=== PATIENT | male | born 1970 | race Caucasian/White ===

== ENCOUNTER 2017-02-26 11:48 | Inpatient (IN) | payer OTHER ==
[2017-02-26 16:19] VITALS: BMI 25.4
--- NOTE | 2017-02-26 16:41 | HP ---
COWS - Scale Resting Pulse: 1= [place] 81-100 Sweatin=Flushed/Facial Moisture Restless Observation: 3= Extraneous Movement Pupil Size: 2= Moderately Dilated Bone or Joint Aches: 2= Severe Diffuse Aches Runny Nose/ Eye Tearin= Runny Nose/Eyes GI Upset > 30mins: 3= Vomiting/Diarrhea Tremor Observation: 2= Slight Tremor Visible Yawning Observation: 2= >3x During Session Anxiety or Irritability: 2=Irritable/Anxious Goose Flesh Skin: 0=Smooth Skin COWS Score: 21 Admission ROS BHS - HPI Chief Complaint: I NEED HELP TO STOP USING PERCOCET Allergies/Adverse Reactions: Allergies Allergy/AdvReac Type Severity Reaction Status Date / Time No Known Allergies Allergy Verified 02/26/17 16:19 History of Present Illness: THIS 46 YEARS OLD MALE WITH PERCOCET DEPENDENCE,SEEKING HELP FOR DETOX, LAST DETOX [facility] 11/22 EXTENSIVE HISTORY OF NECROTIZING FASCIITIS,S/P MULTIPLE SURGERY AND KIN GRAFT AT [facility] LONGEST PERIOD OF SOBRIETY 15 YEARS Exam Limitations: No Limitations - Ebola screening Have you traveled outside of the country in the last 21 days: No Have you had contact with anyone from an Ebola affected area: No Have you been sick,other than usual withdrawal symptoms: No Do you have a fever: No - Review of Systems Constitutional: Chills, Diaphoresis, Malaise, Night Sweats, Changes in sleep, Weakness, Unintentional Wgt. Loss EENT: reports: Tearing, Nose Congestion Respiratory: reports: No Symptoms reported Cardiac: reports: Palpitations GI: reports: Diarrhea, Nausea, Vomiting, Abdominal cramping : reports: No Symptoms Reported Musculoskeletal: reports: Back Pain, Joint Pain, Muscle Pain, Joint Stiffness Integumentary: reports: Dryness (S/P SKIN GRAFT OF LEFT CHEST AND ABDOMEN MULTIPLE SURGERY) Neuro: reports: Headache, Tremors Endocrine: reports: No Symptoms Reported Hematology: reports: No Symptoms Reported Psychiatric: reports: No Sypmtoms Reported, Judgement Intact, Mood/Affect Appropiate, Depressed Patient History - Patient Medical History Hx Anemia: No Hx Asthma: No Hx Chronic Obstructive Pulmonary Disease (COPD): No Hx Cancer: No Hx Cardiac Disorders: No Hx Congestive Heart Failure: No Hx Hypertension: No Hx Hypercholesterolemia: No HX Cerebrovascular Accident: No Hx Seizures: No Hx Dementia: No Hx Diabetes: No Hx Gastrointestinal Disorders: No Hx Liver Disease: No Hx Genitourinary Disorders: No Hx Sexually Transmitted Disorders: No Hx Renal Disease (ESRD): No Hx Thyroid Disease: No Hx Human Immunodeficiency Virus (HIV): No (LAST 11/22 ) Hx Hepatitis C: No Hx Depression: Yes (NO MED) Hx Suicide Attempt: No Hx Bipolar Disorder: No Hx Schizophrenia: No Other Medical History: NO SUICIDAL,NO HOMICIDAL,S/P MULTIPLE SURGRY AND SKIN GRAFT FOR NECROTIZING - Patient Surgical History Past Surgical History: Yes Other Surgical History: S/P MULTIPLE SURGERY OF NECROTIZING FASCIITIS OF LEFT CHEST AND ABDOMEN ,SK - PPD History Previous Implant?: Yes Documented Results: Negative w/o proof Implanted On Prior R Admission?: No PPD to be Administered?: Yes - Smoking Cessation Smoking history: Former smoker Have you smoked in the past 12 months: Yes Aproximately how many cigarettes per day: 10 Hx Chewing Tobacco Use: No Initiated information on smoking cessation: Yes 'Breaking Loose' booklet given: 02/26/17 - Substance & Tx. History Hx Alcohol Use: No Hx Substance Use: Yes Substance Use Type: Opiates Hx Substance Use Treatment: Yes ([facility] [place] 11[place]22) Family Disease History - Family Disease History Family History: Denies Admission Physical Exam BHS - Vital Signs Vital Signs: Vital Signs - 24 hr 02/26/17 16:17 Temperature 97.8 F Pulse Rate 99 H Respiratory 18 Rate Blood Pressure 112/70 - Physical General Appearance: Yes: Moderate Distress, Tremorous, Irritable, Sweating, Anxious HEENTM: Yes: Normocephalic, [place], Pharynx Normal Respiratory: Yes: Lungs Clear, Normal Breath Sounds, No Respiratory Distress Neck: Yes: Within Normal Limits, Supple, Trachea in good position Breast: Yes: Within Normal Limits, Surgical Scar (S/P MULTIPLE SURGERY AND SKIN GRAFT LEFT CHEST AND ABDOMEN) Cardiology: Yes: Within Normal Limits, Regular Rhythm, Regular Rate, S1, S2 Abdominal: Yes: Within Normal Limits, Normal Bowel Sounds, Non Tender, Flat, Soft Genitourinary: Yes: Within Normal Limits Back: Yes: Muscle Spasm Musculoskeletal: Yes: Back pain, Joint Stiffness, Muscle Pain Extremities: Yes: Within Normal Limits, Normal Capillary Refill, Normal Inspection, Normal Range of Motion (WOUND BOTH THIGH [place] DONOR SITE), Tremors Neurological: Yes: gear keeper II-XII NML intact, Fully Oriented, Alert, Motor Strength 5/5 Integumentary: Yes: Dry, Other (S/P SKIN GRAFT LEFT CHEST AND ABDOMEN HEALING AT DONOR SITES BOTH THIGHES) Lymphatic: Yes: Within Normal Limits Cleared for Admission [facility] - Detox or Rehab [facility] Level of Care: Medically Managed Detox Regimen/Protocol: Methadone [facility] Breath Alcohol Content Breath Alcohol Content: 0 Urine Drug Screen - Results Drug Screen Negative: No Urine Drug Screen Results: OXY-Oxycodone
[2017-02-26] MEDS ORDERED: MAGNESIUM HYDROX 2400MG/30ML ORAL SUSPENSION 30 ML CUP PO PRN (17:08)
[2017-02-26] MEDS ORDERED: LOPERAMIDE HCL 2 MG CAPSULE PO PRN (17:08)
[2017-02-26] MEDS ORDERED: guaiFENesin/D-METHORPHAN HB 10 ML UNIT-DOSE CUPS PO PRN (17:08)
[2017-02-26] MEDS ORDERED: MENTHOL/PHENOL 1 EACH UD MM PRN (17:08)
[2017-02-26] MEDS ORDERED: MAG HYDROX/AL HYDROX/SIMETH 30 ML UNIT-DOSE CUP PO PRN (17:08)
[2017-02-26] MEDS ORDERED: MAGNESIUM CITRATE 300 ML BOTTLE PO PRN (17:08)
[2017-02-26] MEDS ORDERED: P-EPHED 60MG/TRIPROLIDI 2.5MG TABLET PO PRN (17:08)
[2017-02-26] MEDS ORDERED: METHADONE HCL 10 MG TABLET (FOR DETOX USE ONLY) PO ONE ×2 (17:45→23:00)
[2017-02-26] MEDS ORDERED: METHADONE HCL 10 MG TABLET (FOR DETOX USE ONLY) ONE (19:47)
[2017-02-26] MEDS: diazePAM 5 MG TABLET PO PRN (19:55)
[2017-02-26] MEDS: THIAMINE HCL 100 MG TABLET (FP) PO SCH (22:05)
[2017-02-26] MEDS: MAGNESIUM OXIDE 400 MG TABLET (FP) PO SCH (22:05)
[2017-02-26] MEDS: diphenhydrAMINE HCL 50 MG CAPSULE PO PRN (22:05)
[2017-02-27] MEDS: IBUPROFEN 400 MG TABLET (FP) PO PRN ×2 (01:00→22:27)
[2017-02-27] MEDS: diazePAM 5 MG TABLET PO PRN ×5 (01:00→22:24)
[2017-02-27] MEDS: CYCLOBENZAPRINE HCL 10 MG TABLET (FP) PO PRN ×2 (01:00→22:27)
[2017-02-27] MEDS: ACETAMINOPHEN 325 MG TABLET (FP) PO PRN (05:51)
--- NOTE | 2017-02-27 09:32 | CONSULT ---
[facility] Psychiatric Consult - Data Date of interview: 02/27/17 Admission source: [facility] Identifying data: This is 46 years old male with no psychiatric hospitalization history intoxicated with: Opioids Substance Abuse History: - Results. Drug Screen Negative: No. Urine Drug Screen Results: OXY-Oxycodone. - Smoking Cessation. Smoking history: Former smoker. Have you smoked in the past 12 months: Yes. Aproximately how many cigarettes per day: 10. Hx Chewing Tobacco Use: No. Initiated information on smoking cessation: Yes. 'Breaking Loose' booklet given: 02/26/17. - Substance & Tx. History. Hx Alcohol Use: No. Hx Substance Use: Yes. Substance Use Type : Opiates. Hx Substance Use Treatment: Yes [place] [place]) Medical History: Denies significant medical issues Psychiatric History: Denies past psychiatric history Physical/Sexual Abuse/Trauma History: Denies Additional Comment: - Results. Drug Screen Negative: No. Urine Drug Screen Results: OXY-Oxycodone. Gabapentin 300mg po bid Mental Status Exam - Mental Status Exam Alert and Oriented to: Person Cognitive Function: Fair Patient Appearance: Unkempt Mood: Sad Affect: Flat Patient Behavior: Sedated Speech Pattern: Delayed Voice Loudness: Mildly Soft/Quiet Thought Process: Circumstantial Thought Disorder: Being Controlled Hallucinations: Denies Suicidal Ideation: Denies Homicidal Ideation: Denies Insight/Judgement: Fair Sleep: Difficulty falling asleep Appetite: Fair Muscle strength/Tone: Normal Gait/Station: Normal Additional Comments: Gabapentin 300mg po bid Psychiatric Findings - Problem List ([place] 1, 2,3) (1) Opioid dependence Current Visit: Yes Status: Acute (2) Opioid-induced sleep disorder Current Visit: Yes Status: Acute - Initial Treatment Plan Initial Treatment Plan: Gabapentin 300mg po bid
[2017-02-27] MEDS ORDERED: BACITRACIN 0.9 GM PACKET TP SCH (10:00)
[2017-02-27] MEDS ORDERED: METHADONE HCL 10 MG TABLET (FOR DETOX USE ONLY) PO ONE (10:00)
[2017-02-27 10:01] LABS: MCH 30.7 pg (25.7-33.7); MCHC 32.9 g/dl (32.0-35.9); MEAN CELL VOLUME 93.5 fl (80-96); MEAN PLT VOLUME 7.2 fl (7.5-11.1); PLATELET COUNT 595 K/MM3 (134-434); RDW 16.6 % (11.9-15.9); WHITE BLOOD COUNT 6.8 K/mm3 (4.0-10.0)
[2017-02-27] MEDS: ZINC SULFATE 220 MG CAPSULE (FP) PO SCH (10:19)
[2017-02-27] MEDS: MAGNESIUM OXIDE 400 MG TABLET (FP) PO SCH ×2 (10:19→22:25)
[2017-02-27] MEDS: PRENATAL VITAMINS W/ FOLIC ACID TABLET (FP) PO SCH (10:19)
[2017-02-27] MEDS: GENTAMICIN SO4 0.1% TOPICAL OINTMENT 15 GM/TUBE TUBE TP SCH (10:19)
[2017-02-27] MEDS: VITAMIN A 10,000 UNITS CAPSULE PO SCH (10:19)
[2017-02-27] MEDS: CALCIUM 500MG/VIT-D 200 UNITS COMBO TABLET (FP) PO SCH (10:19)
[2017-02-27] MEDS: ASCORBIC ACID 500 MG TABLET (FP) PO SCH (10:20)
[2017-02-27 10:29] LABS: ALBUMIN 2.9 g/dl (3.4-5.0); ALK PHOS 129 U/L (45-117); ANION GAP 10 (8-16); BILIRUBIN,TOTAL 0.2 mg/dL (0.2-1.0); CALCIUM 10.5 mg/dL (8.5-10.1); CO2 27 mmol/L (21-32); COCKROFT - GAULT 115.71; CREATININE 0.8 mg/dL (0.7-1.3); GLUCOSE,RANDOM 98 mg/dL (74-106); SGOT/AST 22 U/L (15-37); SGPT/ALT 31 U/L (12-78); TOT PROT 8.1 g/dl (6.4-8.2)
--- NOTE | 2017-02-27 10:35 | PN ---
BHS COWS - Scale Resting Pulse: 1= [place] 81-100 Sweatin= Chills/Flushing Restless Observation: 3= Extraneous Movement Pupil Size: 2= Moderately Dilated Bone or Joint Aches: 4=Acute Joint/Muscle Pain Runny Nose/ Eye Tearin= Runny Nose/Eyes GI Upset > 30mins: 1= Stomach Cramp Tremor Observation of Outstretched Hands: 2= Slight Tremor Visible Yawning Observation: 1= 1-2x During Session Anxiety or Irritability: 2=Irritable/Anxious Goose Flesh Skin: 0=Smooth Skin COWS Score: 19 BHS Progress Note (SOAP) Subjective: ANXIETY,SWEATS, BODY ACHES. Objective: 02/27/17 10:35 Vital Signs Temperature 96.5 F L 02/27/17 09:25 Pulse Rate 96 H 02/27/17 09:25 Respiratory Rate 20 02/27/17 09:25 Blood Pressure 114/69 02/27/17 09:25 O2 Sat by Pulse Oximetry (%) Laboratory Last Values WBC 6.8 K/mm3 (4.0-10.0) 02/27/17 06:00 RBC 3.33 M/mm3 (4.00-5.60) L 02/27/17 06:00 Hgb 10.2 GM/dL (11.7-16.9) L 02/27/17 06:00 Hct 31.2 % (35.4-49) L 02/27/17 06:00 MCV 93.5 fl (80-96) 02/27/17 06:00 MCHC 32.9 g/dl (32.0-35.9) 02/27/17 06:00 RDW 16.6 % (11.9-15.9) H 02/27/17 06:00 Plt Count 595 K/MM3 (134-434) H 02/27/17 06:00 MPV 7.2 fl (7.5-11.1) L 02/27/17 06:00 Sodium 133 mmol/L (136-145) L 02/27/17 06:00 Potassium 4.4 mmol/L (3.5-5.1) 02/27/17 06:00 Chloride 96 mmol/L (98-107) L 02/27/17 06:00 Assessment: 02/27/17 10:35 WITHDRAWAL SX Plan: CONTINUE DETOX
[2017-02-27] MEDS: GABAPENTIN 300 MG CAPSULE (FP) PO SCH ×2 (11:20→22:24)
[2017-02-27 14:02] LABS: HIV 1 & 2 AB NEGATIVE; HIV 1 AGp24 NEGATIVE
[2017-02-27] MEDS: THIAMINE HCL 100 MG TABLET (FP) PO SCH (22:24)
[2017-02-28] MEDS: diazePAM 5 MG TABLET PO PRN ×4 (04:18→20:53)
[2017-02-28] MEDS: IBUPROFEN 400 MG TABLET (FP) PO PRN ×3 (06:14→21:46)
[2017-02-28] MEDS: CYCLOBENZAPRINE HCL 10 MG TABLET (FP) PO PRN ×2 (06:14→23:52)
--- NOTE | 2017-02-28 09:57 | PN ---
BHS COWS - Scale Resting Pulse: 1= [place] 81-100 Sweatin= Chills/Flushing Restless Observation: 3= Extraneous Movement Pupil Size: 2= Moderately Dilated Bone or Joint Aches: 4=Acute Joint/Muscle Pain Runny Nose/ Eye Tearin= Nasal Congestion GI Upset > 30mins: 1= Stomach Cramp Tremor Observation of Outstretched Hands: 1= Tremor [place], Not Seen Yawning Observation: 1= 1-2x During Session Anxiety or Irritability: 2=Irritable/Anxious Goose Flesh Skin: 0=Smooth Skin COWS Score: 17 BHS Progress Note (SOAP) Subjective: ANXIETY,IRRITABILITY,BODY ACHES/POST GRAFT SKIN DISCOMFORT Objective: 02/28/17 09:55 Vital Signs Temperature 97.5 F L 02/28/17 09:30 Pulse Rate 96 H 02/28/17 09:30 Respiratory Rate 20 02/28/17 09:30 Blood Pressure 109/69 02/28/17 09:30 O2 Sat by Pulse Oximetry (%) Laboratory Last Values WBC 6.8 K/mm3 (4.0-10.0) 02/27/17 06:00 RBC 3.33 M/mm3 (4.00-5.60) L 02/27/17 06:00 Hgb 10.2 GM/dL (11.7-16.9) L 02/27/17 06:00 Hct 31.2 % (35.4-49) L 02/27/17 06:00 MCV 93.5 fl (80-96) 02/27/17 06:00 MCHC 32.9 g/dl (32.0-35.9) 02/27/17 06:00 RDW 16.6 % (11.9-15.9) H 02/27/17 06:00 Plt Count 595 K/MM3 (134-434) H 02/27/17 06:00 MPV 7.2 fl (7.5-11.1) L 02/27/17 06:00 Sodium 133 mmol/L (136-145) L 02/27/17 06:00 Potassium 4.4 mmol/L (3.5-5.1) 02/27/17 06:00 Chloride 96 mmol/L (98-107) L 02/27/17 06:00 Carbon Dioxide 27 mmol/L (21-32) 02/27/17 06:00 Anion Gap 10 (8-16) 02/27/17 06:00 BUN 7 mg/dL (7-18) 02/27/17 06:00 Creatinine 0.8 mg/dL (0.7-1.3) 02/27/17 06:00 Creat Clearance w eGFR > 60 (>60) 02/27/17 06:00 Random Glucose 98 mg/dL (74-106) 02/27/17 06:00 Calcium 10.5 mg/dL (8.5-10.1) H 02/27/17 06:00 Total Bilirubin 0.2 mg/dL (0.2-1.0) 02/27/17 06:00 AST 22 U/L (15-37) 02/27/17 06:00 ALT 31 U/L (12-78) 02/27/17 06:00 Alkaline Phosphatase 129 U/L (45-117) H 02/27/17 06:00 Total Protein 8.1 g/dl (6.4-8.2) 02/27/17 06:00 Albumin 2.9 g/dl (3.4-5.0) L 02/27/17 06:00 RPR Titer Nonreactive (NONREACTIVE) 02/27/17 06:00 HIV 1&2 Antibody Screen Negative 02/26/17 06:00 HIV P24 Antigen Negative 02/26/17 06:00 GRAFT SITES CLEAN AND DRY WITH NORMAL WOUND HEALING Assessment: 02/28/17 09:55 WITHDRAWAL SX Plan: CONTINUE DETOX. BACITRACIN OINTMENT DIRECTED
[2017-02-28] MEDS ORDERED: METHADONE HCL 5 MG TABLET (FOR DETOX USE ONLY) PO ONE (10:00)
[2017-02-28 10:22] LABS: URINE APPEARANCE CLEAR; URINE BILIRUBIN NEGATIVE (NEGATIVE); URINE BLOOD NEGATIVE (NEGATIVE); URINE COLOR STRAW; URINE GLUCOSE (UA) NEGATIVE (NEGATIVE); URINE KETONE NEGATIVE (NEGATIVE); URINE LEUK ESTERASE NEGATIVE (NEGATIVE); URINE NITRITE NEGATIVE (NEGATIVE); URINE PROTEIN NEGATIVE (NEGATIVE); URINE UROBILINOGEN NEGATIVE E.U./dl (0.2-1.0)
[2017-02-28] MEDS: CALCIUM 500MG/VIT-D 200 UNITS COMBO TABLET (FP) PO SCH (10:24)
[2017-02-28] MEDS: VITAMIN A 10,000 UNITS CAPSULE PO SCH (10:24)
[2017-02-28] MEDS: PRENATAL VITAMINS W/ FOLIC ACID TABLET (FP) PO SCH (10:25)
[2017-02-28] MEDS: GENTAMICIN SO4 0.1% TOPICAL OINTMENT 15 GM/TUBE TUBE TP SCH (10:25)
[2017-02-28] MEDS: ZINC SULFATE 220 MG CAPSULE (FP) PO SCH (10:25)
[2017-02-28] MEDS: BACITRACIN 30 GM TUBE TOPICAL OINTMENT TP SCH (10:25)
[2017-02-28] MEDS: GABAPENTIN 300 MG CAPSULE (FP) PO SCH ×2 (10:25→21:46)
[2017-02-28] MEDS: MAGNESIUM OXIDE 400 MG TABLET (FP) PO SCH ×2 (10:25→21:46)
[2017-02-28] MEDS: ASCORBIC ACID 500 MG TABLET (FP) PO SCH (10:26)
[2017-02-28] MEDS: THIAMINE HCL 100 MG TABLET (FP) PO SCH (21:45)
[2017-02-28] MEDS: diphenhydrAMINE HCL 50 MG CAPSULE PO PRN (21:47)
[2017-03-01] MEDS ORDERED: METHADONE HCL 5 MG TABLET (FOR DETOX USE ONLY) PO ONE (10:00)
[2017-03-01] MEDS: BACITRACIN 30 GM TUBE TOPICAL OINTMENT TP SCH (10:17)
[2017-03-01] MEDS: ZINC SULFATE 220 MG CAPSULE (FP) PO SCH (10:17)
[2017-03-01] MEDS: MAGNESIUM OXIDE 400 MG TABLET (FP) PO SCH ×2 (10:17→22:31)
[2017-03-01] MEDS: GABAPENTIN 300 MG CAPSULE (FP) PO SCH ×2 (10:17→22:31)
[2017-03-01] MEDS: GENTAMICIN SO4 0.1% TOPICAL OINTMENT 15 GM/TUBE TUBE TP SCH (10:17)
[2017-03-01] MEDS: PRENATAL VITAMINS W/ FOLIC ACID TABLET (FP) PO SCH (10:17)
[2017-03-01] MEDS: VITAMIN A 10,000 UNITS CAPSULE PO SCH (10:17)
[2017-03-01] MEDS: ASCORBIC ACID 500 MG TABLET (FP) PO SCH (10:17)
[2017-03-01] MEDS: CALCIUM 500MG/VIT-D 200 UNITS COMBO TABLET (FP) PO SCH (10:17)
--- NOTE | 2017-03-01 13:02 | PN ---
S Progress Note (SOAP) Subjective: anxiety, leg pain Objective: 03/01/17 13:01 Vital Signs - 8 hr 03/01/17 10:26 Temperature 99.3 F Pulse Rate 97 H Respiratory 20 Rate Blood Pressure 97/67 Laboratory Last Values WBC 6.8 K/mm3 (4.0-10.0) 02/27/17 06:00 RBC 3.33 M/mm3 (4.00-5.60) L 02/27/17 06:00 Hgb 10.2 GM/dL (11.7-16.9) L 02/27/17 06:00 Hct 31.2 % (35.4-49) L 02/27/17 06:00 MCV 93.5 fl (80-96) 02/27/17 06:00 MCHC 32.9 g/dl (32.0-35.9) 02/27/17 06:00 RDW 16.6 % (11.9-15.9) H 02/27/17 06:00 Plt Count 595 K/MM3 (134-434) H 02/27/17 06:00 MPV 7.2 fl (7.5-11.1) L 02/27/17 06:00 Sodium 133 mmol/L (136-145) L 02/27/17 06:00 Potassium 4.4 mmol/L (3.5-5.1) 02/27/17 06:00 Chloride 96 mmol/L (98-107) L 02/27/17 06:00 Carbon Dioxide 27 mmol/L (21-32) 02/27/17 06:00 Anion Gap 10 (8-16) 02/27/17 06:00 BUN 7 mg/dL (7-18) 02/27/17 06:00 Creatinine 0.8 mg/dL (0.7-1.3) 02/27/17 06:00 Creat Clearance w eGFR > 60 (>60) 02/27/17 06:00 Random Glucose 98 mg/dL (74-106) 02/27/17 06:00 Calcium 10.5 mg/dL (8.5-10.1) H 02/27/17 06:00 Total Bilirubin 0.2 mg/dL (0.2-1.0) 02/27/17 06:00 AST 22 U/L (15-37) 02/27/17 06:00 ALT 31 U/L (12-78) 02/27/17 06:00 Alkaline Phosphatase 129 U/L (45-117) H 02/27/17 06:00 Total Protein 8.1 g/dl (6.4-8.2) 02/27/17 06:00 Albumin 2.9 g/dl (3.4-5.0) L 02/27/17 06:00 Urine Color Straw 02/28/17 08:08 Urine Appearance Clear 02/28/17 08:08 Urine pH 7.0 (5.0-8.0) 02/28/17 08:08 Ur Specific [place] 1.010 (1.005-1.025) 02/28/17 08:08 Urine Protein Negative (NEGATIVE) 02/28/17 08:08 Urine Glucose (UA) Negative (NEGATIVE) 02/28/17 08:08 Urine Ketones Negative (NEGATIVE) 02/28/17 08:08 Urine Blood Negative (NEGATIVE) 02/28/17 08:08 Urine Nitrite Negative (NEGATIVE) 02/28/17 08:08 Urine Bilirubin Negative (NEGATIVE) 02/28/17 08:08 Urine Urobilinogen Negative E.U./dl (0.2-1.0) 02/28/17 08:08 Ur Leukocyte Esterase Negative (NEGATIVE) 02/28/17 08:08 RPR Titer Nonreactive (NONREACTIVE) 02/27/17 06:00 HIV 1&2 Antibody Screen Negative 02/26/17 06:00 HIV P24 Antigen Negative 02/26/17 06:00 labs noted mild hyponatremia mild thrombocytosis Assessment: 03/01/17 13:01 withdrawal sx Plan: continue detox f/u with PCP for repeat labs
[2017-03-01] MEDS: ACETAMINOPHEN 325 MG TABLET (FP) PO PRN (15:12)
[2017-03-01] MEDS: CYCLOBENZAPRINE HCL 10 MG TABLET (FP) PO PRN (19:26)
[2017-03-01] MEDS: hydrOXYzine PAMOATE 50 MG CAPSULE (FP) PO PRN (19:26)
[2017-03-01] MEDS: THIAMINE HCL 100 MG TABLET (FP) PO SCH (22:30)
[2017-03-01] MEDS: diphenhydrAMINE HCL 50 MG CAPSULE PO PRN (22:31)
[2017-03-02] MEDS: METHADONE HCL 10 MG TABLET (FOR DETOX USE ONLY) PO ONE ×2 (11:20→11:21)
[2017-03-02] MEDS: MAGNESIUM OXIDE 400 MG TABLET (FP) PO SCH ×2 (11:21→22:29)
[2017-03-02] MEDS: VITAMIN A 10,000 UNITS CAPSULE PO SCH (11:21)
[2017-03-02] MEDS: PRENATAL VITAMINS W/ FOLIC ACID TABLET (FP) PO SCH (11:21)
[2017-03-02] MEDS: ZINC SULFATE 220 MG CAPSULE (FP) PO SCH (11:21)
[2017-03-02] MEDS: GENTAMICIN SO4 0.1% TOPICAL OINTMENT 15 GM/TUBE TUBE TP SCH (11:21)
[2017-03-02] MEDS: CALCIUM 500MG/VIT-D 200 UNITS COMBO TABLET (FP) PO SCH (11:21)
[2017-03-02] MEDS: GABAPENTIN 300 MG CAPSULE (FP) PO SCH ×2 (11:21→22:28)
[2017-03-02] MEDS: BACITRACIN 30 GM TUBE TOPICAL OINTMENT TP SCH (11:21)
[2017-03-02] MEDS: ASCORBIC ACID 500 MG TABLET (FP) PO SCH (11:22)
--- NOTE | 2017-03-02 15:21 | PN ---
BHS Progress Note (SOAP) Subjective: Anxious, sweating, interrupted sleep Objective: 03/02/17 15:20 Last Vital Signs Temp Pulse Resp BP Pulse Ox 96.2 F L 105 H 20 111/70 03/02/17 13:51 03/02/17 13:51 03/02/17 13:51 03/02/17 13:51 Laboratory Tests 02/26/17 02/27/17 02/27/17 06:00 06:00 06:00 WBC 6.8 RBC 3.33 L Hgb 10.2 L Hct 31.2 L MCV 93.5 MCHC 32.9 RDW 16.6 H Plt Count 595 H MPV 7.2 L Sodium 133 L Potassium 4.4 Chloride 96 L Carbon Dioxide 27 Anion Gap 10 BUN 7 Creatinine 0.8 Creat Clearance w eGFR > 60 Random Glucose 98 Calcium 10.5 H Total Bilirubin 0.2 AST 22 ALT 31 Alkaline Phosphatase 129 H Total Protein 8.1 Albumin 2.9 L Urine Color Urine Appearance Urine pH Ur Specific [place] Urine Protein Urine Glucose (UA) Urine Ketones Urine Blood Urine Nitrite Urine Bilirubin Urine Urobilinogen Ur Leukocyte Esterase RPR Titer HIV 1&2 Antibody Screen Negative HIV P24 Antigen Negative 02/27/17 02/28/17 06:00 08:08 WBC RBC Hgb Hct MCV MCHC RDW Plt Count MPV Sodium Potassium Chloride Carbon Dioxide Anion Gap BUN Creatinine Creat Clearance w eGFR Random Glucose Calcium Total Bilirubin AST ALT Alkaline Phosphatase Total Protein Albumin Urine Color Straw Urine Appearance Clear Urine pH 7.0 Ur Specific [place] 1.010 Urine Protein Negative Urine Glucose (UA) Negative Urine Ketones Negative Urine Blood Negative Urine Nitrite Negative Urine Bilirubin Negative Urine Urobilinogen Negative Ur Leukocyte Esterase Negative RPR Titer Nonreactive HIV 1&2 Antibody Screen HIV P24 Antigen Labs noted Assessment: 03/02/17 15:21 Withdrawal symptoms Plan: Continue detox
[2017-03-02] MEDS: IBUPROFEN 400 MG TABLET (FP) PO PRN (20:15)
[2017-03-02] MEDS: CYCLOBENZAPRINE HCL 10 MG TABLET (FP) PO PRN (20:15)
[2017-03-02] MEDS: THIAMINE HCL 100 MG TABLET (FP) PO SCH (22:28)
[2017-03-02] MEDS: hydrOXYzine PAMOATE 50 MG CAPSULE (FP) PO PRN (22:30)
[2017-03-03] MEDS: CYCLOBENZAPRINE HCL 10 MG TABLET (FP) PO PRN (05:45)
[2017-03-03] MEDS: IBUPROFEN 400 MG TABLET (FP) PO PRN ×2 (05:45→17:36)
[2017-03-03] MEDS: hydrOXYzine PAMOATE 50 MG CAPSULE (FP) PO PRN (05:46)
[2017-03-03] MEDS ORDERED: METHADONE HCL 5 MG TABLET (FOR DETOX USE ONLY) PO ONE (06:00)
[2017-03-03] MEDS: ZINC SULFATE 220 MG CAPSULE (FP) PO SCH (10:18)
[2017-03-03] MEDS: MAGNESIUM OXIDE 400 MG TABLET (FP) PO SCH ×2 (10:18→22:14)
[2017-03-03] MEDS: CALCIUM 500MG/VIT-D 200 UNITS COMBO TABLET (FP) PO SCH (10:18)
[2017-03-03] MEDS: GABAPENTIN 300 MG CAPSULE (FP) PO SCH ×2 (10:18→22:14)
[2017-03-03] MEDS: PRENATAL VITAMINS W/ FOLIC ACID TABLET (FP) PO SCH (10:18)
[2017-03-03] MEDS: BACITRACIN 30 GM TUBE TOPICAL OINTMENT TP SCH (10:19)
[2017-03-03] MEDS: ASCORBIC ACID 500 MG TABLET (FP) PO SCH (10:19)
[2017-03-03] MEDS: GENTAMICIN SO4 0.1% TOPICAL OINTMENT 15 GM/TUBE TUBE TP SCH (10:19)
[2017-03-03] MEDS: VITAMIN A 10,000 UNITS CAPSULE PO SCH (10:19)
--- NOTE | 2017-03-03 14:18 | PN ---
BHS Progress Note (SOAP) Subjective: Sweating, chills, interrupted sleep Objective: 03/03/17 14:16 Last Vital Signs Temp Pulse Resp BP Pulse Ox 97.6 F 94 H 20 119/65 03/03/17 13:36 03/03/17 13:36 03/03/17 13:36 03/03/17 13:36 Laboratory Tests 02/26/17 02/27/17 02/27/17 06:00 06:00 06:00 WBC 6.8 RBC 3.33 L Hgb 10.2 L Hct 31.2 L MCV 93.5 MCHC 32.9 RDW 16.6 H Plt Count 595 H MPV 7.2 L Sodium 133 L Potassium 4.4 Chloride 96 L Carbon Dioxide 27 Anion Gap 10 BUN 7 Creatinine 0.8 Creat Clearance w eGFR > 60 Random Glucose 98 Calcium 10.5 H Total Bilirubin 0.2 AST 22 ALT 31 Alkaline Phosphatase 129 H Total Protein 8.1 Albumin 2.9 L Urine Color Urine Appearance Urine pH Ur Specific [place] Urine Protein Urine Glucose (UA) Urine Ketones Urine Blood Urine Nitrite Urine Bilirubin Urine Urobilinogen Ur Leukocyte Esterase RPR Titer HIV 1&2 Antibody Screen Negative HIV P24 Antigen Negative 02/27/17 02/28/17 06:00 08:08 WBC RBC Hgb Hct MCV MCHC RDW Plt Count MPV Sodium Potassium Chloride Carbon Dioxide Anion Gap BUN Creatinine Creat Clearance w eGFR Random Glucose Calcium Total Bilirubin AST ALT Alkaline Phosphatase Total Protein Albumin Urine Color Straw Urine Appearance Clear Urine pH 7.0 Ur Specific [place] 1.010 Urine Protein Negative Urine Glucose (UA) Negative Urine Ketones Negative Urine Blood Negative Urine Nitrite Negative Urine Bilirubin Negative Urine Urobilinogen Negative Ur Leukocyte Esterase Negative RPR Titer Nonreactive HIV 1&2 Antibody Screen HIV P24 Antigen Labs noted Assessment: 03/03/17 14:17 Withdrawal symptoms Plan: Continue detox
[2017-03-03] MEDS: THIAMINE HCL 100 MG TABLET (FP) PO SCH (22:14)
[2017-03-03] MEDS: diphenhydrAMINE HCL 50 MG CAPSULE PO PRN (22:14)
[2017-03-04] MEDS: hydrOXYzine PAMOATE 50 MG CAPSULE (FP) PO PRN (05:48)
[2017-03-04] MEDS: BACITRACIN 30 GM TUBE TOPICAL OINTMENT TP SCH (10:36)
[2017-03-04] MEDS: CALCIUM 500MG/VIT-D 200 UNITS COMBO TABLET (FP) PO SCH (10:36)
[2017-03-04] MEDS: VITAMIN A 10,000 UNITS CAPSULE PO SCH (10:36)
[2017-03-04] MEDS: ZINC SULFATE 220 MG CAPSULE (FP) PO SCH (10:36)
[2017-03-04] MEDS: MAGNESIUM OXIDE 400 MG TABLET (FP) PO SCH ×2 (10:36→22:14)
[2017-03-04] MEDS: GABAPENTIN 300 MG CAPSULE (FP) PO SCH ×2 (10:36→22:14)
[2017-03-04] MEDS: PRENATAL VITAMINS W/ FOLIC ACID TABLET (FP) PO SCH (10:36)
[2017-03-04] MEDS: ASCORBIC ACID 500 MG TABLET (FP) PO SCH (10:36)
[2017-03-04] MEDS: GENTAMICIN SO4 0.1% TOPICAL OINTMENT 15 GM/TUBE TUBE TP SCH (10:37)
--- NOTE | 2017-03-04 10:57 | PN ---
BHS Progress Note (SOAP) Subjective: ANXIETY,SWEATS,FATIGUE. Objective: 03/04/17 10:56 Vital Signs 03/04/17 03/04/17 03/04/17 03:36 06:18 09:16 Temperature 100.1 F H 97.5 F L Pulse Rate 101 H 106 H Respiratory 18 18 20 Rate Blood Pressure 126/76 107/75 03/04/17 09:25 Temperature 97.5 F L Pulse Rate 106 H Respiratory 20 Rate Blood Pressure 107/75 Assessment: 03/04/17 10:56 WITHDRAWAL SX Plan: CONTINUE DETOX
[2017-03-04] MEDS: IBUPROFEN 400 MG TABLET (FP) PO PRN (20:19)
[2017-03-04] MEDS: diphenhydrAMINE HCL 50 MG CAPSULE PO PRN (22:14)
[2017-03-04] MEDS: THIAMINE HCL 100 MG TABLET (FP) PO SCH (22:14)
[2017-03-05 06:42] VITALS: BP 109/59; PULSE 95; TEMP 98.2
[2017-03-05] MEDS: PRENATAL VITAMINS W/ FOLIC ACID TABLET (FP) PO SCH (09:53)
[2017-03-05] MEDS: CALCIUM 500MG/VIT-D 200 UNITS COMBO TABLET (FP) PO SCH (09:53)
[2017-03-05] MEDS: ASCORBIC ACID 500 MG TABLET (FP) PO SCH (09:53)
[2017-03-05] MEDS: VITAMIN A 10,000 UNITS CAPSULE PO SCH (09:53)
[2017-03-05] MEDS: MAGNESIUM OXIDE 400 MG TABLET (FP) PO SCH (09:53)
[2017-03-05] MEDS: ZINC SULFATE 220 MG CAPSULE (FP) PO SCH (09:53)
[2017-03-05] MEDS: BACITRACIN 30 GM TUBE TOPICAL OINTMENT TP SCH (09:54)
[2017-03-05] MEDS: GENTAMICIN SO4 0.1% TOPICAL OINTMENT 15 GM/TUBE TUBE TP SCH (09:54)
[2017-03-05] MEDS: GABAPENTIN 300 MG CAPSULE (FP) PO SCH (09:56)
--- NOTE | 2017-03-05 11:13 | DS ---
[facility] Detox Discharge Summary Admission Date: 02/26/17 Discharge Date: 03/05/17 - History Present History: Opioid Dependence Additional Comments: DETOX COMPLETED.ALERT O X 3. NAD. F/U WITH PMD FOR MEDICAL MANAGEMENT OF GRAFT SITES. BACITRACIN OINTMENT DIRECTED. Pertinent Past History: S/P SKIN GRAFT HX NECROTIZING FASCITIS - Physical Exam Results Vital Signs: Vital Signs Temperature 98.2 F 03/05/17 06:41 Pulse Rate 95 H 03/05/17 06:41 Respiratory Rate 16 03/05/17 06:41 Blood Pressure 109/59 03/05/17 06:41 O2 Sat by Pulse Oximetry (%) Pertinent Admission Physical Exam Findings: WITHDRAWAL SX - Treatment Hospital Course: Detox Protocol Followed, Detoxed Safely, Responded well, Discharged Condition Good - Medication Discharge Medications: Ambulatory Orders Ascorbic Acid [Vitamin C -] 500 mg PO DAILY 02/26/17 Bacitracin - [Bacitracin Topical Ointment -] 1 applic TP DAILY 02/26/17 Calcium Carbonate/Vitamin D3 [Oyster Shell 500-Vit D3 200 Tb] 1 each PO DAILY Folic Acid - 1 mg PO DAILY 02/26/17 Gabapentin [Neurontin -] 300 mg PO BID 02/26/17 Gentamicin 0.1% Ointment [Garamycin 0.1% Ointment -] 1 applic TP DAILY 02/26/17 Magnesium Oxide [Mag-Ox -] 800 mg PO TID 02/26/17 Thiamine Mononitrate [Vitamin B-1] 100 mg PO DAILY 02/26/17 Vitamin A Palmitate [Vitamin A] 10,000 unit PO DAILY 02/26/17 Zinc Sulfate [Orazinc] 220 mg PO DAILY 02/26/17 Gabapentin [Neurontin -] 300 mg PO BID #60 cap 02/27/17 - Diagnosis (1) Opioid dependence with withdrawal Status: Acute (2) Opioid-induced sleep disorder Status: Acute (3) Status post skin graft Status: Acute (4) History of necrotizing fasciitis Status: Chronic - AMA Did Patient Leave Against Medical Advice: No
== END 2017-03-05 10:20 | disposition home or self-care (01) | DRG 773 ==
LOC: YASAS 11:48 → Y3N 16:39
PROVIDERS: ADMIT Internal Medicine; ATTEND Internal Medicine
PROC: HZ2ZZZZ Detoxification Services for Substance Abuse Treatment (ICD-10-PCS; principal; 2017-03-05)
DX: F11.20 Opioid dependence, uncomplicated (principal); F19.282 Other psychoactive substance dependence with psychoactive substance-induced sleep disorder; F32.9 Major depressive disorder, single episode, unspecified
CPT/HCPCS: 36415; 80053; 81003; 85027; 86593; 87389

== ENCOUNTER 2019-09-16 11:57 | Inpatient (IN) | payer OTHER ==
[2019-09-16 12:31] VITALS: BMI 25.8
--- NOTE | 2019-09-16 12:58 | HP ---
"CIWA Score Nausea/Vomitin Muscle Tremors: 1-None Visible, but [place] Anxiety: 4-Mod. Anxious/Guarded Agitation: 4-Moderately Restless Paroxysmal Sweats: 1-Minimal Palms Moist Orientation: 1-Uncertain about Date Tacttile Disturbances: 0-None Auditory Disturbances: 1-Very Mild Visual Disturbances: 2-Mild Sensitivity Headache: 3-Moderate CIWA-Ar Total Score: 23 - Admission Criteria OASAS Guidelines: Admission for Medically Managed Detox: Requires at least one of the followin. CIWA greater than 12 2. Seizures within the past 24 hours 3. Delirium tremens within the past 24 hours 4. Hallucinations within the past 24 hours 5. Acute intervention needed for co occurring medical disorder 6. Acute intervention needed for co occurring psychiatric disorder 7. Severe withdrawal that cannot be handled at a lower level of care (continued vomiting, continued diarrhea, abnormal vital signs) requiring intravenous medication and/or fluids 8. Admitting History and Physical - Smoking History Smoking history: Former smoker Have you smoked in the past 12 months: Yes Aproximately how many cigarettes per day: 10 If you are a former smoker, when did you quit?: 2 months - Alcohol/Substance Use Hx Alcohol Use: No Admission ROS S - HPI Allergies/Adverse Reactions: Allergies Allergy/AdvReac Type Severity Reaction Status Date / Time No Known Allergies Allergy Verified 09/16/19 12:23 History of Present Illness: Search Terms: chikis valera, 1970 Search Date: 09/16/2019 12:57:28 PM The Drug Utilization Report below displays all of the controlled substance prescriptions, if any, that your patient has filled in the last twelve months. The information displayed on this report is compiled from pharmacy submissions to the Department, and accurately reflects the information as submitted by the pharmacies. This report was requested by: Scarlett Marquez | Reference #: [id number] There are no results for the search terms that you entered. pt here requesting detox from etoh use , claims opiate use utox negative for opiates . Exam Limitations: Clinical Condition - Ebola screening Have you traveled outside of the country in the last 21 days: No Have you had contact with anyone from an Ebola affected area: No Do you have a fever: No - Review of Systems Constitutional: See HPI, Loss of Appetite EENT: reports: Nose Congestion, Other (denies vision , denies dysphagia) Respiratory: reports: No Symptoms reported Cardiac: reports: No Symptoms Reported GI: reports: See HPI, Nausea, Poor Appetite, Vomiting, Abdominal cramping : reports: No Symptoms Reported Musculoskeletal: reports: See HPI, Back Pain Integumentary: reports: See HPI (s/p surgery for necrotizing fasciitis ( remote )) Neuro: reports: See HPI, Headache Endocrine: reports: No Symptoms Reported Psychiatric: reports: Agitated, Anxious, Disorientated Patient History - Patient Medical History Hx Anemia: No Hx Asthma: No Hx Chronic Obstructive Pulmonary Disease (COPD): No Hx Cancer: No Hx Cardiac Disorders: No Hx Congestive Heart Failure: No Hx Hypertension: No Hx Hypercholesterolemia: No HX Cerebrovascular Accident: No Hx Seizures: No Hx Dementia: No Hx Diabetes: No Hx Gastrointestinal Disorders: No Hx Liver Disease: No Hx Genitourinary Disorders: No Hx Sexually Transmitted Disorders: No Hx Renal Disease (ESRD): No Hx Thyroid Disease: No Hx Human Immunodeficiency Virus (HIV): No (LAST 11/22 ) Hx Hepatitis C: No Hx Depression: Yes (NO MED) Hx Suicide Attempt: No Hx Bipolar Disorder: No Hx Schizophrenia: No - Patient Surgical History Past Surgical History: Yes Other Surgical History: S/P MULTIPLE SURGERY OF NECROTIZING FASCIITIS OF LEFT CHEST AND ABDOMEN ,SK - PPD History Date: 02/28/17 PPD to be Administered?: Yes - Smoking Cessation Smoking history: Former smoker Have you smoked in the past 12 months: Yes Aproximately how many cigarettes per day: 10 If you are a former smoker, when did you quit?: 2 months Hx Chewing Tobacco Use: No Initiated information on smoking cessation: No - Substances abused Heroin Substance route: Inhalation Frequency: 3-6 times per week Amount used: 2- 3 bags Age of first use: 12 Date of last use: 09/15/19 Alcohol Substance route: Oral Frequency: Daily Amount used: a quart of liquor daily Age of first use: 49 Date of last use: 09/16/19 Crack Substance route: Smoking Frequency: Daily Amount used: $200 Age of first use: 49 Date of last use: 09/15/19 Admission Physical Exam BHS - Vital Signs Vital Signs: Vital Signs - 24 hr 09/16/19 12:25 Temperature 97.8 F Pulse Rate 73 Respiratory 20 Rate Blood Pressure 141/89 - Physical General Appearance: Yes: Severe Distress, Irritable, Anxious HEENTM: Yes: EOMI, Hearing grossly Normal, Normocephalic, Normal Voice Respiratory: Yes: Chest Non-Tender, Lungs Clear, Normal Breath Sounds, No Respiratory Distress, No Accessory Muscle Use Neck: Yes: No masses,lesions,Nodules, Trachea in good position Cardiology: Yes: Regular Rhythm, Regular Rate, S1, S2 Abdominal: Yes: Non Tender, Soft Back: Yes: Normal Inspection Musculoskeletal: Yes: Other (unsteady gait) Extremities: Yes: Normal Capillary Refill, Normal Inspection, Normal Range of Motion, Non-Tender Neurological: Yes: Alert, Motor Strength 5/5, Normal Mood/Affect Integumentary: Yes: Warm - Diagnostic (1) Alcohol use disorder Current Visit: Yes Status: Acute Inpatient Rehab Admission - Rehab Decision to Admit Inpatient rehab admission?: No"
[2019-09-16] MEDS ORDERED: IBUPROFEN 400 MG TABLET (FP) PO PRN (13:10)
[2019-09-16] MEDS ORDERED: MAGNESIUM CITRATE 300 ML BOTTLE PO PRN (13:10)
[2019-09-16] MEDS ORDERED: ACETAMINOPHEN 325 MG TABLET (FP) PO PRN ×2 (13:10)
[2019-09-16] MEDS ORDERED: BISMUTH SUBSALICYLATE 262 MG/15 ML BTL PO PRN (13:10)
[2019-09-16] MEDS ORDERED: hydrOXYzine PAMOATE 25 MG CAPSULE (FP) PO PRN (13:10)
[2019-09-16] MEDS ORDERED: MAG HYDROX/AL HYDROX/SIMETH 30 ML UNIT-DOSE CUP PO PRN (13:10)
[2019-09-16] MEDS ORDERED: MAGNESIUM HYDROX 2400MG/30ML ORAL SUSPENSION 30 ML CUP PO PRN (13:10)
[2019-09-16] MEDS ORDERED: MENTHOL/PHENOL 1 EACH UD MM PRN (13:10)
[2019-09-16] MEDS ORDERED: TRIMETHOBENZAMIDE HCL 200MG/2ML INJ IM ONE ×2 (13:11→22:39)
[2019-09-16] MEDS: diazePAM 5 MG TABLET PO SCH (14:07)
--- NOTE | 2019-09-16 14:54 | PN ---
S Progress Note Note: s/p fall , found sitting on bathroom floor on R side, states he was squatting down and slid on his right side, no injuries noted or reported, assisted to WC , denies c/o pain . Pt declined transfer to [facility] ED and signed RMA , post-fall protocol entered.
[2019-09-16] MEDS ORDERED: cloNIDine HCL 0.1 MG TABLET PO ONE (18:16)
[2019-09-16] MEDS: ONDANSETRON *ODT* 4 MG TABLET SL PRN (18:18)
--- NOTE | 2019-09-16 18:19 | PN ---
[facility] Progress Note Note: Vital Signs Temperature 97.3 F L 09/16/19 17:39 Pulse Rate 81 09/16/19 17:39 Respiratory Rate 18 09/16/19 17:39 Blood Pressure 163/107 H 09/16/19 17:39 O2 Sat by Pulse Oximetry (%) Reports received from floor RN re: patient vomiting and with elevated BP, agitated on admission noted with hx of opioid dependence utox negative for opiates, positive for alex, bzo thc one time order clonodine 0.1 mg ordered for withdrawal sx fluids as tolerated zofran prn for vomiting continue detox continue to monitor
[2019-09-16] MEDS: diazePAM 5 MG TABLET PO PRN (19:16)
[2019-09-16] MEDS: THIAMINE HCL 100 MG TABLET (FP) PO SCH (22:36)
[2019-09-17] MEDS: diazePAM 5 MG TABLET PO SCH ×4 (00:18→21:04)
[2019-09-17] MEDS: ONDANSETRON *ODT* 4 MG TABLET SL PRN (04:21)
[2019-09-17] MEDS ORDERED: TRIMETHOBENZAMIDE HCL 200MG/2ML INJ IM PRN (09:00)
[2019-09-17] MEDS ORDERED: METHADONE HCL 10 MG TABLET (FOR DETOX USE ONLY) PO ONE ×2 (09:30→21:00)
[2019-09-17 10:13] LABS: HEMATOCRIT 47.2 % (35.4-49); HEMOGLOBIN 16.6 GM/dL (11.7-16.9); MCHC 35.1 g/dl (32.0-35.9); MEAN CELL VOLUME 96.8 fl (80-96); MEAN PLT VOLUME 9.8 fl (7.5-11.1); PLATELET COUNT 259 K/MM3 (134-434); RBC 4.87 M/mm3 (4.00-5.60); RDW 13.1 % (11.9-15.9)
[2019-09-17 10:15] LABS: ALBUMIN 3.7 g/dl (3.4-5.0); BILIRUBIN,TOTAL 0.7 mg/dL (0.2-1); CALCIUM 9.3 mg/dL (8.5-10.1); CREATININE 0.8 mg/dL (0.55-1.3); POTASSIUM 3.1 mmol/L (3.5-5.1); TOT PROT 7.3 g/dl (6.4-8.2)
[2019-09-17] MEDS: PRENATAL VITAMINS W/ FOLIC ACID TABLET (FP) PO SCH (10:36)
--- NOTE | 2019-09-17 11:56 | PN ---
[facility] CIWA - CIWA Score Nausea/Vomitin Muscle Tremors: 2 Anxiety: 3 Agitation: 1-Slight > Activity Paroxysmal Sweats: 4-Forehead w/Sweat Beads Orientation: 0-Oriented Tacttile Disturbances: 3-Moderate Itch/Numb/Burn Auditory Disturbances: 0-None Visual Disturbances: 0-None Headache: 0-None Present CIWA-Ar Total Score: 19 [facility] COWS - Scale Resting Pulse: 1= NE 81-100 Sweatin=Flushed/Facial Moisture Restless Observation: 1= Difficult to Sit Still Pupil Size: 2= Moderately Dilated Bone or Joint Aches: 2= Severe Diffuse Aches Runny Nose/ Eye Tearin= Nasal Congestion GI Upset > 30mins: 5=Frequent Vomit/Diarrhea Tremor Observation of Outstretched Hands: 1= Tremor [place], Not Seen Yawning Observation: 0= None Anxiety or Irritability: 2=Irritable/Anxious Goose Flesh Skin: 0=Smooth Skin COWS Score: 17 S Progress Note (SOAP) Subjective: interrupted sleep, sweats, nausea , vomiting, abdominal cramps and low back pain Objective: 09/17/19 11:51 Vital Signs Temperature 99.0 F 09/17/19 10:20 Pulse Rate 76 09/17/19 10:20 Respiratory Rate 17 09/17/19 10:20 Blood Pressure 136/72 09/17/19 10:20 O2 Sat by Pulse Oximetry (%) pt lying in bed in position moist skin ,dilated pupils ,vomiting Assessment: 09/17/19 11:53 withdrawal sx's - pt with h/o heroin use last use day before admission having continuous n/v/- opioid withdrawal after receiving methadone pt nausea and vomiting ceased . pt reports he is much better now. hypokalemia 09/17/19 11:56 Plan: cont. detox increase fluids replace k+ started on methadone detox.
[2019-09-17] MEDS: POTASSIUM CHLORIDE ORAL LIQUID 20 MEQ/15 ML PO SCH ×2 (14:05→20:05)
[2019-09-17] MEDS: diazePAM 5 MG TABLET PO PRN (20:06)
[2019-09-17] MEDS: THIAMINE HCL 100 MG TABLET (FP) PO SCH (21:02)
[2019-09-17] MEDS: METHOCARBAMOL 500 MG TABLET PO PRN (21:02)
[2019-09-17] MEDS: MELATONIN 5 MG TABLETS PO PRN (22:45)
[2019-09-18] MEDS: diazePAM 5 MG TABLET PO SCH ×2 (05:25→17:22)
[2019-09-18] MEDS ORDERED: METHADONE HCL 5 MG TABLET (FOR DETOX USE ONLY) PO ONE (10:00)
[2019-09-18] MEDS: PRENATAL VITAMINS W/ FOLIC ACID TABLET (FP) PO SCH (11:56)
--- NOTE | 2019-09-18 12:56 | PN ---
[facility] CIWA - CIWA Score Nausea/Vomitin-Mild Nausea/No Vomiting Muscle Tremors: 2 Anxiety: 1-Mildly Anxious Agitation: 1-Slight > Activity Paroxysmal Sweats: 1-Minimal Palms Moist Orientation: 0-Oriented Tacttile Disturbances: 0-None Auditory Disturbances: 0-None Visual Disturbances: 0-None Headache: 1-Very Mild CIWA-Ar Total Score: 7 BHS COWS - Scale Resting Pulse: 1= [place] 81-100 Sweatin= Chills/Flushing Restless Observation: 1= Difficult to Sit Still Pupil Size: 1= Pupils >than Normal Bone or Joint Aches: 1= Mild Discomfort Runny Nose/ Eye Tearin= Nasal Congestion GI Upset > 30mins: 1= Stomach Cramp Tremor Observation of Outstretched Hands: 1= Tremor [place], Not Seen Yawning Observation: 1= 1-2x During Session Anxiety or Irritability: 1=Feels Anxious/Irritable Goose Flesh Skin: 0=Smooth Skin COWS Score: 10 [facility] Progress Note (SOAP) Subjective: pt here for alcohol and heroin detox. No complaints O: Vital Signs - 24 hr 09/17/19 09/17/19 09/17/19 13:00 13:03 17:15 Temperature 98.2 F 98.2 F 98.1 F Pulse Rate 76 76 82 Respiratory 18 18 18 Rate Blood Pressure 154/95 154/95 135/89 09/17/19 09/18/19 09/18/19 22:00 00:30 03:30 Temperature 97.3 F L Pulse Rate 80 Respiratory 18 18 18 Rate Blood Pressure 132/92 09/18/19 09/18/19 09/18/19 05:57 06:28 09:36 Temperature 97.7 F 96.8 F L Pulse Rate 61 61 68 Respiratory 18 18 18 Rate Blood Pressure 108/77 132/80 Laboratory Tests 09/17/19 09/17/19 09/17/19 08:00 08:00 08:00 WBC 9.0 RBC 4.87 Hgb 16.6 Hct 47.2 D MCV 96.8 H MCH 34.0 H D MCHC 35.1 RDW 13.1 D Plt Count 259 D MPV 9.8 D Sodium 136 Potassium 3.1 L Chloride 97 L Carbon Dioxide 31 Anion Gap 8 BUN 16.0 Creatinine 0.8 Est GFR (CKD-EPI)AfAm 120.72 Est GFR (CKD-EPI)NonAf 104.16 Random Glucose 105 Calcium 9.3 Total Bilirubin 0.7 AST 21 ALT 25 Alkaline Phosphatase 83 Total Protein 7.3 Albumin 3.7 Total Amylase 19 L Lipase 68 L RPR Titer Nonreactive low potassium a/p: continue detox protocols continue potassium replacement
[2019-09-18] MEDS: POTASSIUM CHLORIDE TABS 20 MEQ TABLET.ER (FP) PO SCH ×2 (14:23→22:41)
[2019-09-18] MEDS: METHOCARBAMOL 500 MG TABLET PO PRN (22:41)
[2019-09-18] MEDS: MELATONIN 5 MG TABLETS PO PRN (22:41)
[2019-09-18] MEDS: THIAMINE HCL 100 MG TABLET (FP) PO SCH (22:41)
[2019-09-19] MEDS ORDERED: diazePAM 5 MG TABLET PO ONE (06:00)
[2019-09-19] MEDS ORDERED: METHADONE HCL 10 MG TABLET (FOR DETOX USE ONLY) PO ONE (10:00)
[2019-09-19] MEDS: PRENATAL VITAMINS W/ FOLIC ACID TABLET (FP) PO SCH (10:02)
[2019-09-19] MEDS: POTASSIUM CHLORIDE TABS 20 MEQ TABLET.ER (FP) PO SCH ×2 (10:03→22:35)
--- NOTE | 2019-09-19 10:15 | EKG ---
Test Reason : Blood Pressure : / mmHG Vent. Rate : 071 BPM Atrial Rate : 071 BPM P-R Int : 144 ms QRS Dur : 094 ms QT Int : 394 ms P-R-T Axes : 004 -11 -87 degrees QTc Int : 428 ms NORMAL SINUS RHYTHM INFERIOR INFARCT , AGE UNDETERMINED T WAVE ABNORMALITY, CONSIDER LATERAL ISCHEMIA ABNORMAL ECG NO PREVIOUS ECGS AVAILABLE Confirmed by DANY OBRIEN MD ([id number]) on 09/19/2019 10:15:31 AM Referred By: Confirmed By:DANY OBRIEN MD
--- NOTE | 2019-09-19 14:42 | PN ---
[facility] CIWA - CIWA Score Nausea/Vomitin-No Nausea/No Vomiting Muscle Tremors: None Anxiety: 2 Agitation: 2 Paroxysmal Sweats: 2 Orientation: 0-Oriented Tacttile Disturbances: 0-None Auditory Disturbances: 0-None Visual Disturbances: 0-None Headache: 0-None Present CIWA-Ar Total Score: 6 S COWS - Scale Resting Pulse: 0= SD 80 or Below Sweatin= Chills/Flushing Restless Observation: 1= Difficult to Sit Still Pupil Size: 0= Normal to Room Light Bone or Joint Aches: 1= Mild Discomfort Runny Nose/ Eye Tearin= None GI Upset > 30mins: 1= Stomach Cramp Tremor Observation of Outstretched Hands: 0= None Yawning Observation: 0= None Anxiety or Irritability: 2=Irritable/Anxious Goose Flesh Skin: 0=Smooth Skin COWS Score: 6 [facility] Progress Note (SOAP) Subjective: Diarrhea, chills, interrupted sleep, back pain Objective: 09/19/19 14:36 Last Vital Signs Temp Pulse Resp BP Pulse Ox 97.7 F 70 18 153/82 09/19/19 14:19 09/19/19 14:19 09/19/19 14:19 09/19/19 14:19 Elevated b/p 153/82: denies htn, not on med Laboratory Tests 09/17/19 09/17/19 09/17/19 08:00 08:00 08:00 WBC 9.0 RBC 4.87 Hgb 16.6 Hct 47.2 D MCV 96.8 H MCH 34.0 H D MCHC 35.1 RDW 13.1 D Plt Count 259 D MPV 9.8 D Sodium 136 Potassium 3.1 L Chloride 97 L Carbon Dioxide 31 Anion Gap 8 BUN 16.0 Creatinine 0.8 Est GFR (CKD-EPI)AfAm 120.72 Est GFR (CKD-EPI)NonAf 104.16 Random Glucose 105 Calcium 9.3 Total Bilirubin 0.7 AST 21 ALT 25 Alkaline Phosphatase 83 Total Protein 7.3 Albumin 3.7 Total Amylase 19 L Lipase 68 L RPR Titer Nonreactive Labs reviewed: K 3.1 Assessment: 09/19/19 14:38 Withdrawal sxs Elevated b/p and Hypokalemia noted Plan: Continue detox Encouraged PO water intake Discharge patient tomorrow if repeated serum K level wnl Elevated b/p w/o dx of htn: not on medication, most likely due to withdrawal, start clonidine prn Hypokalemia: supplemented, repeat serum K level
[2019-09-19] MEDS ORDERED: cloNIDine HCL 0.1 MG TABLET PO PRN (14:45)
[2019-09-19] MEDS: THIAMINE HCL 100 MG TABLET (FP) PO SCH (22:35)
[2019-09-19] MEDS: MELATONIN 5 MG TABLETS PO PRN (22:36)
[2019-09-20] MEDS ORDERED: METHADONE HCL 5 MG TABLET (FOR DETOX USE ONLY) PO ONE (06:00)
--- NOTE | 2019-09-20 09:33 | DS ---
[facility] Detox Discharge Summary Admission Date: 09/16/19 Discharge Date: 09/20/19 - History Present History: Alcohol Dependence, Opioid Dependence - Physical Exam Results Vital Signs: Vital Signs Temperature 97.7 F 09/20/19 06:00 Pulse Rate 61 09/20/19 06:00 Respiratory Rate 18 09/20/19 06:00 Blood Pressure 140/72 09/20/19 06:00 O2 Sat by Pulse Oximetry (%) Pertinent Admission Physical Exam Findings: Vital Signs Temperature 97.7 F 09/20/19 06:00 Pulse Rate 61 09/20/19 06:00 Respiratory Rate 18 09/20/19 06:00 Blood Pressure 140/72 09/20/19 06:00 O2 Sat by Pulse Oximetry (%) Laboratory Tests 09/17/19 09/17/19 09/17/19 08:00 08:00 08:00 WBC 9.0 RBC 4.87 Hgb 16.6 Hct 47.2 D MCV 96.8 H MCH 34.0 H D MCHC 35.1 RDW 13.1 D Plt Count 259 D MPV 9.8 D Sodium 136 Potassium 3.1 L Chloride 97 L Carbon Dioxide 31 Anion Gap 8 BUN 16.0 Creatinine 0.8 Est GFR (CKD-EPI)AfAm 120.72 Est GFR (CKD-EPI)NonAf 104.16 Random Glucose 105 Calcium 9.3 Total Bilirubin 0.7 AST 21 ALT 25 Alkaline Phosphatase 83 Total Protein 7.3 Albumin 3.7 Total Amylase 19 L Lipase 68 L RPR Titer Nonreactive aaox3 ambulating no acute distress - Treatment Hospital Course: Detox Protocol Followed, Detoxed Safely, Responded well, Discharged Condition Good, Rehab Referral Accepted Patient has Accepted a Rehab Referral to[facility] - Medication Discharge Medications: Ambulatory Orders NK [No Known Home Medication] 09/16/19 - Diagnosis (1) Alcohol use disorder Current Visit: Yes Status: Acute (2) Opioid dependence with withdrawal Current Visit: Yes Status: Chronic (3) Opioid-induced sleep disorder Current Visit: No Status: Acute (4) Status post skin graft Current Visit: No Status: Acute (5) History of necrotizing fasciitis Current Visit: No Status: Chronic - AMA Did Patient Leave Against Medical Advice: No
[2019-09-20 09:41] VITALS: BP 116/74; PULSE 70; TEMP 97.5
[2019-09-20] MEDS: POTASSIUM CHLORIDE TABS 20 MEQ TABLET.ER (FP) PO SCH (10:11)
[2019-09-20] MEDS: PRENATAL VITAMINS W/ FOLIC ACID TABLET (FP) PO SCH (10:11)
== END 2019-09-20 12:13 | disposition other institution (70) | DRG 773 ==
LOC: YASAS 11:57 → Y6N 13:25
PROVIDERS: ADMIT Allergy & Immunology; ATTEND Allergy & Immunology
PROC: HZ2ZZZZ Detoxification Services for Substance Abuse Treatment (ICD-10-PCS; principal; 2019-09-16)
DX: F11.23 Opioid dependence with withdrawal (principal); F11.282 Opioid dependence with opioid-induced sleep disorder; F10.230 Alcohol dependence with withdrawal, uncomplicated; R03.0 Elevated blood-pressure reading, without diagnosis of hypertension; Z87.891 Personal history of nicotine dependence; Z86.19 Personal history of other infectious and parasitic diseases; Z87.2 Personal history of diseases of the skin and subcutaneous tissue; Z94.5 Skin transplant status; W18.39XA Other fall on same level, initial encounter; Z91.81 History of falling; Y93.89 Activity, other specified; Y92.231 Patient bathroom in hospital as the place of occurrence of the external cause
CPT/HCPCS: 36415; 80053; 82150; 83690; 84132; 85027; 86593; 93005; 93010; J0735; Q0162

== ENCOUNTER 2019-09-20 12:20 | Inpatient (IN) | payer OTHER ==
[2019-09-20] MEDS ORDERED: NICOTINE POLACRILEX 4 MG GUM BUC PRN (15:24)
[2019-09-20] MEDS ORDERED: LOPERAMIDE HCL 2 MG CAPSULE PO PRN (15:24)
[2019-09-20] MEDS ORDERED: MAG HYDROX/AL HYDROX/SIMETH 30 ML UNIT-DOSE CUP PO PRN (15:24)
[2019-09-20] MEDS ORDERED: MENTHOL/PHENOL 1 EACH UD MM PRN (15:24)
[2019-09-20] MEDS ORDERED: MAGNESIUM HYDROX 2400MG/30ML ORAL SUSPENSION 30 ML CUP PO PRN (15:24)
[2019-09-20] MEDS ORDERED: P-EPHED 60MG/TRIPROLIDI 2.5MG TABLET PO PRN (15:24)
[2019-09-20] MEDS ORDERED: guaiFENesin 200 MG/10 ML 10 ML UNIT-DOSE CUPS PO PRN (15:24)
[2019-09-20] MEDS ORDERED: hydrOXYzine PAMOATE 50 MG CAPSULE (FP) PO PRN (15:24)
[2019-09-20] MEDS ORDERED: IBUPROFEN 400 MG TABLET (FP) PO PRN (15:24)
[2019-09-20] MEDS ORDERED: MAGNESIUM CITRATE 300 ML BOTTLE PO PRN (15:24)
[2019-09-20] MEDS ORDERED: ACETAMINOPHEN 325 MG TABLET (FP) PO PRN (15:24)
--- NOTE | 2019-09-20 15:24 | HP ---
[facility] Rehab Assess/Revision - Admission History Admitted to Rehab from: [address] - Vital signs Vital Signs: Vital Signs Period Temp Pulse Resp BP Sys/Owens Pulse Ox Last 24 Hr 97.8 F 62 18 121/82 - Findings Detox History & Physical reviewed: Yes Concur with findings: Yes Inpatient Rehab Admission - Rehab Decision to Admit Inpatient rehab admission?: Yes - Initial Determination Are CD services needed?: Yes Free of communicable disease: Yes Not in need of hospitalization: Yes - Rehab Admission Criteria Previous failed treatment: Yes Poor recovery environment: Yes Comorbidities: Yes Lacks judgement: Yes Patient is meeting Inpatient Rehab admission criteria:: Yes
[2019-09-20] MEDS: THIAMINE HCL 100 MG TABLET (FP) PO SCH (22:50)
[2019-09-21] MEDS: PRENATAL VITAMINS W/ FOLIC ACID TABLET (FP) PO SCH (09:48)
[2019-09-21] MEDS: NICOTINE 21 MG/24 HOURS TOPICAL PATCH TD SCH (09:48)
--- NOTE | 2019-09-21 10:23 | PN ---
[facility] Progress Note Note: Patient admitted to rehab. Last admission reviewed (2014): no safety issues noted. labs, orders, home medications (none), and problem list reviewed. Continue to monitor. Vital Signs Period Temp Pulse Resp BP Sys/Owens Pulse Ox Last 24 Hr 97.8 F-98.6 F 62-63 18-18 121-137/82-84
[2019-09-21] MEDS: THIAMINE HCL 100 MG TABLET (FP) PO SCH (21:18)
[2019-09-21] MEDS: MELATONIN 5 MG TABLETS PO PRN (21:18)
[2019-09-22] MEDS: NICOTINE 21 MG/24 HOURS TOPICAL PATCH TD SCH (10:23)
[2019-09-22] MEDS: PRENATAL VITAMINS W/ FOLIC ACID TABLET (FP) PO SCH (10:46)
--- NOTE | 2019-09-22 15:19 | PN ---
[facility] COWS - Scale Resting Pulse: 0= [place] 80 or Below Sweatin= Beads of Sweat on Face Restless Observation: 0= Sits Still Pupil Size: 0= Normal to Room Light Bone or Joint Aches: 2= Severe Diffuse Aches Runny Nose/ Eye Tearin= Nasal Congestion GI Upset > 30mins: 1= Stomach Cramp Tremor Observation of Outstretched Hands: 0= None Yawning Observation: 0= None Anxiety or Irritability: 1=Feels Anxious/Irritable Goose Flesh Skin: 0=Smooth Skin COWS Score: 8 [facility] Progress Note (SOAP) Subjective: patient requesting suboxone MAT; PMHx of Heroin use, overdosed, believed that the heroin he used contained fentanyl. He has tried suboxone on the street and states that it stopped the cravings. Objective: General: Slightly agitated, but no distress HEENTM: Normocephalic, PERRLA Neck:supple Lungs: clear Heart: s1 s2 ABD: +BS Neuro: CN 2-12 intact. SKIN: Healed necrotizing facitis on left trunk under axillae and left thigh. 09/22/19 15:20 Assessment: Experiencing some withdrawal from heroin symptoms 09/22/19 15:22 Plan: Will start Suboxone 2mg today. Patient was taught how to take the suboxone. Patient will go to [facility] after completing rehab.
[2019-09-22] MEDS: BUPRENORPHINE/NALOXONE 2 MG/0.5 MG FILM PACKET SL SCH (15:55)
[2019-09-22] MEDS: MELATONIN 5 MG TABLETS PO PRN (21:26)
[2019-09-22] MEDS: THIAMINE HCL 100 MG TABLET (FP) PO SCH (21:26)
[2019-09-23] MEDS: BUPRENORPHINE/NALOXONE 2 MG/0.5 MG FILM PACKET SL SCH (10:31)
[2019-09-23] MEDS: PRENATAL VITAMINS W/ FOLIC ACID TABLET (FP) PO SCH (10:31)
[2019-09-23] MEDS: NICOTINE 21 MG/24 HOURS TOPICAL PATCH TD SCH (10:31)
[2019-09-23] MEDS: THIAMINE HCL 100 MG TABLET (FP) PO SCH (21:39)
[2019-09-23] MEDS: MELATONIN 5 MG TABLETS PO PRN (21:39)
[2019-09-24] MEDS: PRENATAL VITAMINS W/ FOLIC ACID TABLET (FP) PO SCH (10:35)
[2019-09-24] MEDS: BUPRENORPHINE/NALOXONE 2 MG/0.5 MG FILM PACKET SL SCH (10:35)
[2019-09-24] MEDS: NICOTINE 21 MG/24 HOURS TOPICAL PATCH TD SCH (10:36)
[2019-09-24] MEDS: MELATONIN 5 MG TABLETS PO PRN (21:24)
[2019-09-24] MEDS: THIAMINE HCL 100 MG TABLET (FP) PO SCH (21:24)
[2019-09-25] MEDS: PRENATAL VITAMINS W/ FOLIC ACID TABLET (FP) PO SCH (10:10)
[2019-09-25] MEDS: NICOTINE 21 MG/24 HOURS TOPICAL PATCH TD SCH (10:10)
[2019-09-25] MEDS: BUPRENORPHINE/NALOXONE 2 MG/0.5 MG FILM PACKET SL SCH (10:12)
[2019-09-25] MEDS: MELATONIN 5 MG TABLETS PO PRN (21:23)
[2019-09-25] MEDS: THIAMINE HCL 100 MG TABLET (FP) PO SCH (21:24)
[2019-09-26] MEDS: PRENATAL VITAMINS W/ FOLIC ACID TABLET (FP) PO SCH (10:26)
[2019-09-26] MEDS: BUPRENORPHINE/NALOXONE 2 MG/0.5 MG FILM PACKET SL SCH (10:26)
[2019-09-26] MEDS: NICOTINE 21 MG/24 HOURS TOPICAL PATCH TD SCH (10:26)
[2019-09-26] MEDS: THIAMINE HCL 100 MG TABLET (FP) PO SCH (22:23)
[2019-09-26] MEDS: MELATONIN 5 MG TABLETS PO PRN (22:23)
[2019-09-27] MEDS: BUPRENORPHINE/NALOXONE 2 MG/0.5 MG FILM PACKET SL SCH (10:16)
[2019-09-27] MEDS: PRENATAL VITAMINS W/ FOLIC ACID TABLET (FP) PO SCH (10:16)
[2019-09-27] MEDS: NICOTINE 21 MG/24 HOURS TOPICAL PATCH TD SCH (10:16)
[2019-09-27] MEDS: MELATONIN 5 MG TABLETS PO PRN (21:34)
[2019-09-27] MEDS: THIAMINE HCL 100 MG TABLET (FP) PO SCH (21:34)
[2019-09-28] MEDS: PRENATAL VITAMINS W/ FOLIC ACID TABLET (FP) PO SCH (09:58)
[2019-09-28] MEDS: NICOTINE 21 MG/24 HOURS TOPICAL PATCH TD SCH (10:00)
[2019-09-28] MEDS: BUPRENORPHINE/NALOXONE 2 MG/0.5 MG FILM PACKET SL SCH (16:43)
[2019-09-28] MEDS: MELATONIN 5 MG TABLETS PO PRN (21:20)
[2019-09-28] MEDS: THIAMINE HCL 100 MG TABLET (FP) PO SCH (21:20)
[2019-09-29] MEDS: NICOTINE 21 MG/24 HOURS TOPICAL PATCH TD SCH (10:06)
[2019-09-29] MEDS: PRENATAL VITAMINS W/ FOLIC ACID TABLET (FP) PO SCH (10:06)
[2019-09-29] MEDS: BUPRENORPHINE/NALOXONE 2 MG/0.5 MG FILM PACKET SL SCH (10:06)
[2019-09-29] MEDS: THIAMINE HCL 100 MG TABLET (FP) PO SCH (21:05)
[2019-09-29] MEDS: MELATONIN 5 MG TABLETS PO PRN (21:05)
[2019-09-30] MEDS: PRENATAL VITAMINS W/ FOLIC ACID TABLET (FP) PO SCH (10:56)
[2019-09-30] MEDS: NICOTINE 21 MG/24 HOURS TOPICAL PATCH TD SCH (10:56)
[2019-09-30] MEDS: BUPRENORPHINE/NALOXONE 2 MG/0.5 MG FILM PACKET SL SCH (10:58)
[2019-09-30] MEDS: MELATONIN 5 MG TABLETS PO PRN (21:19)
[2019-09-30] MEDS: THIAMINE HCL 100 MG TABLET (FP) PO SCH (21:19)
[2019-10-01] MEDS: NICOTINE 21 MG/24 HOURS TOPICAL PATCH TD SCH (10:06)
[2019-10-01] MEDS: BUPRENORPHINE/NALOXONE 2 MG/0.5 MG FILM PACKET SL SCH (10:06)
[2019-10-01] MEDS: PRENATAL VITAMINS W/ FOLIC ACID TABLET (FP) PO SCH (10:06)
[2019-10-01] MEDS: MELATONIN 5 MG TABLETS PO PRN (21:12)
[2019-10-01] MEDS: THIAMINE HCL 100 MG TABLET (FP) PO SCH (21:12)
[2019-10-02] MEDS: PRENATAL VITAMINS W/ FOLIC ACID TABLET (FP) PO SCH (09:49)
[2019-10-02] MEDS: NICOTINE 21 MG/24 HOURS TOPICAL PATCH TD SCH (09:49)
[2019-10-02] MEDS: BUPRENORPHINE/NALOXONE 2 MG/0.5 MG FILM PACKET SL SCH (15:05)
[2019-10-02] MEDS: THIAMINE HCL 100 MG TABLET (FP) PO SCH (21:25)
[2019-10-02] MEDS: MELATONIN 5 MG TABLETS PO PRN (21:25)
[2019-10-03] MEDS: BUPRENORPHINE/NALOXONE 2 MG/0.5 MG FILM PACKET SL SCH (09:55)
[2019-10-03] MEDS: PRENATAL VITAMINS W/ FOLIC ACID TABLET (FP) PO SCH (09:55)
[2019-10-03] MEDS: NICOTINE 21 MG/24 HOURS TOPICAL PATCH TD SCH (09:55)
[2019-10-03] MEDS: THIAMINE HCL 100 MG TABLET (FP) PO SCH (21:30)
[2019-10-03] MEDS: MELATONIN 5 MG TABLETS PO PRN (21:31)
[2019-10-04] MEDS: NICOTINE 21 MG/24 HOURS TOPICAL PATCH TD SCH (10:08)
[2019-10-04] MEDS: PRENATAL VITAMINS W/ FOLIC ACID TABLET (FP) PO SCH (10:08)
[2019-10-04] MEDS: MELATONIN 5 MG TABLETS PO PRN (21:46)
[2019-10-04] MEDS: THIAMINE HCL 100 MG TABLET (FP) PO SCH (21:46)
[2019-10-05] MEDS: NICOTINE 21 MG/24 HOURS TOPICAL PATCH TD SCH (10:51)
[2019-10-05] MEDS: PRENATAL VITAMINS W/ FOLIC ACID TABLET (FP) PO SCH (11:59)
[2019-10-05] MEDS: BUPRENORPHINE/NALOXONE 2 MG/0.5 MG FILM PACKET SL SCH (11:59)
[2019-10-05] MEDS: MELATONIN 5 MG TABLETS PO PRN (21:34)
[2019-10-05] MEDS: THIAMINE HCL 100 MG TABLET (FP) PO SCH (21:34)
[2019-10-06] MEDS: PRENATAL VITAMINS W/ FOLIC ACID TABLET (FP) PO SCH (10:16)
[2019-10-06] MEDS: NICOTINE 21 MG/24 HOURS TOPICAL PATCH TD SCH (10:16)
[2019-10-06] MEDS: BUPRENORPHINE/NALOXONE 2 MG/0.5 MG FILM PACKET SL SCH (10:16)
[2019-10-06] MEDS: THIAMINE HCL 100 MG TABLET (FP) PO SCH (22:10)
[2019-10-07] MEDS: NICOTINE 21 MG/24 HOURS TOPICAL PATCH TD SCH (10:18)
[2019-10-07] MEDS: BUPRENORPHINE/NALOXONE 2 MG/0.5 MG FILM PACKET SL SCH (10:18)
[2019-10-07] MEDS: PRENATAL VITAMINS W/ FOLIC ACID TABLET (FP) PO SCH (10:18)
[2019-10-07] MEDS: MELATONIN 5 MG TABLETS PO PRN (21:28)
[2019-10-07] MEDS: THIAMINE HCL 100 MG TABLET (FP) PO SCH (21:28)
[2019-10-08] MEDS: BUPRENORPHINE/NALOXONE 2 MG/0.5 MG FILM PACKET SL SCH (09:43)
[2019-10-08] MEDS: NICOTINE 21 MG/24 HOURS TOPICAL PATCH TD SCH (09:43)
[2019-10-08] MEDS: PRENATAL VITAMINS W/ FOLIC ACID TABLET (FP) PO SCH (09:43)
[2019-10-08] MEDS: THIAMINE HCL 100 MG TABLET (FP) PO SCH (21:17)
[2019-10-08] MEDS: MELATONIN 5 MG TABLETS PO PRN (21:17)
[2019-10-09] MEDS: NICOTINE 21 MG/24 HOURS TOPICAL PATCH TD SCH (10:51)
[2019-10-09] MEDS: PRENATAL VITAMINS W/ FOLIC ACID TABLET (FP) PO SCH (10:52)
[2019-10-09] MEDS: BUPRENORPHINE/NALOXONE 2 MG/0.5 MG FILM PACKET SL SCH (10:54)
[2019-10-09] MEDS: MELATONIN 5 MG TABLETS PO PRN (22:09)
[2019-10-09] MEDS: THIAMINE HCL 100 MG TABLET (FP) PO SCH (22:09)
[2019-10-10] MEDS: BUPRENORPHINE/NALOXONE 2 MG/0.5 MG FILM PACKET SL SCH (10:13)
[2019-10-10] MEDS: PRENATAL VITAMINS W/ FOLIC ACID TABLET (FP) PO SCH (10:13)
[2019-10-10] MEDS: NICOTINE 21 MG/24 HOURS TOPICAL PATCH TD SCH (10:13)
[2019-10-10] MEDS: MELATONIN 5 MG TABLETS PO PRN (21:44)
[2019-10-10] MEDS: THIAMINE HCL 100 MG TABLET (FP) PO SCH (21:48)
[2019-10-11] MEDS: PRENATAL VITAMINS W/ FOLIC ACID TABLET (FP) PO SCH (11:20)
[2019-10-11] MEDS: BUPRENORPHINE/NALOXONE 2 MG/0.5 MG FILM PACKET SL SCH (11:21)
[2019-10-11] MEDS: NICOTINE 21 MG/24 HOURS TOPICAL PATCH TD SCH (11:21)
[2019-10-11] MEDS: THIAMINE HCL 100 MG TABLET (FP) PO SCH (21:20)
[2019-10-11] MEDS: MELATONIN 5 MG TABLETS PO PRN (21:20)
[2019-10-12] MEDS: PRENATAL VITAMINS W/ FOLIC ACID TABLET (FP) PO SCH (10:16)
[2019-10-12] MEDS: BUPRENORPHINE/NALOXONE 2 MG/0.5 MG FILM PACKET SL SCH (10:16)
[2019-10-12] MEDS: NICOTINE 21 MG/24 HOURS TOPICAL PATCH TD SCH (10:17)
[2019-10-12] MEDS: THIAMINE HCL 100 MG TABLET (FP) PO SCH (21:46)
--- NOTE | 2019-10-13 09:11 | PN ---
S Progress Note Note: Vital Signs Temperature 98 F 10/13/19 06:28 Pulse Rate 76 10/13/19 06:28 Respiratory Rate 18 10/13/19 06:28 Blood Pressure 114/83 10/13/19 06:28 O2 Sat by Pulse Oximetry (%) Laboratory Last Values Potassium 4.4 mmol/L (3.5-5.1) 09/23/19 10:00 MAT ORDER RENEWAL PATIENT ON SUBOXONE 2MG QD, ORDER NEEDS RENEWAL, ORDERED RENEWED CONTINUE TO MONITOR
[2019-10-13] MEDS: NICOTINE 21 MG/24 HOURS TOPICAL PATCH TD SCH (10:55)
[2019-10-13] MEDS: PRENATAL VITAMINS W/ FOLIC ACID TABLET (FP) PO SCH (10:55)
[2019-10-13] MEDS: BUPRENORPHINE/NALOXONE 2 MG/0.5 MG FILM PACKET SL SCH (10:57)
[2019-10-13] MEDS: MELATONIN 5 MG TABLETS PO PRN (21:31)
[2019-10-13] MEDS: THIAMINE HCL 100 MG TABLET (FP) PO SCH (21:31)
[2019-10-14] MEDS: BUPRENORPHINE/NALOXONE 2 MG/0.5 MG FILM PACKET SL SCH (09:53)
[2019-10-14] MEDS: PRENATAL VITAMINS W/ FOLIC ACID TABLET (FP) PO SCH (09:53)
[2019-10-14] MEDS: NICOTINE 21 MG/24 HOURS TOPICAL PATCH TD SCH (09:54)
[2019-10-14] MEDS: THIAMINE HCL 100 MG TABLET (FP) PO SCH (21:40)
[2019-10-15] MEDS: BUPRENORPHINE/NALOXONE 2 MG/0.5 MG FILM PACKET SL SCH (09:34)
[2019-10-15] MEDS: PRENATAL VITAMINS W/ FOLIC ACID TABLET (FP) PO SCH (09:34)
[2019-10-15] MEDS: NICOTINE 21 MG/24 HOURS TOPICAL PATCH TD SCH (09:35)
[2019-10-15] MEDS: THIAMINE HCL 100 MG TABLET (FP) PO SCH (21:07)
[2019-10-15] MEDS: MELATONIN 5 MG TABLETS PO PRN (21:07)
[2019-10-16] MEDS: PRENATAL VITAMINS W/ FOLIC ACID TABLET (FP) PO SCH (09:46)
[2019-10-16] MEDS: BUPRENORPHINE/NALOXONE 2 MG/0.5 MG FILM PACKET SL SCH (09:46)
[2019-10-16] MEDS: NICOTINE 21 MG/24 HOURS TOPICAL PATCH TD SCH (09:48)
[2019-10-16] MEDS: MELATONIN 5 MG TABLETS PO PRN (21:37)
[2019-10-16] MEDS: THIAMINE HCL 100 MG TABLET (FP) PO SCH (21:37)
[2019-10-17] MEDS: PRENATAL VITAMINS W/ FOLIC ACID TABLET (FP) PO SCH (09:15)
[2019-10-17] MEDS: BUPRENORPHINE/NALOXONE 2 MG/0.5 MG FILM PACKET SL SCH (09:15)
[2019-10-17] MEDS: NICOTINE 21 MG/24 HOURS TOPICAL PATCH TD SCH (09:15)
[2019-10-17] MEDS: THIAMINE HCL 100 MG TABLET (FP) PO SCH (21:28)
[2019-10-18 07:01] VITALS: BP 121/89; PULSE 69; TEMP 98
[2019-10-18] MEDS: BUPRENORPHINE/NALOXONE 2 MG/0.5 MG FILM PACKET SL SCH (09:02)
[2019-10-18] MEDS: PRENATAL VITAMINS W/ FOLIC ACID TABLET (FP) PO SCH (09:02)
[2019-10-18] MEDS: NICOTINE 21 MG/24 HOURS TOPICAL PATCH TD SCH (09:03)
--- NOTE | 2019-10-18 10:03 | DS ---
[facility] Rehab Discharge Summary - [facility] Rehab Discharge Summary Admission Date: 09/20/19 Discharge Date: 10/18/19 - History Present History: Alcohol dependence, Opioid dependence - Discharge Physical Exam Vital Signs: Vital Signs Temperature 98 F 10/18/19 06:59 Pulse Rate 69 10/18/19 06:59 Respiratory Rate 18 10/18/19 06:59 Blood Pressure 121/89 10/18/19 06:59 O2 Sat by Pulse Oximetry (%) - Treatment Discharge Condition: Discharge condition good Hospital Course: PATIENT COMPLETED 28 DAY TREATMENT STAY IN REHAB AND IS SCHEDULED FOR D/C TODAY. PATIENT IS TO FOLLOW UP WITH [facility] FOR AFTERCARE, APPOINTMENT SCHEDULED FOR 10/19/2019 AT 10AM. PATIENT IS MEDICALLY STABLE AND DENIES SI/HI. STARTED ON SUBOXONE MAT DURING HOSPITAL COURSE-2MG SL DAILY. TOLERATED TREATMENT WELL. 7 DAY PRESCRIPTION SENT TO [facility]. PATIENT LEFT UNIT IN STABLE CONDITION. Laboratory Tests 09/23/19 10:00 Potassium 4.4 Vital Signs Period Temp Pulse Resp BP Sys/Owens Pulse Ox Last 24 Hr 98 F 69 18-18 121/89 ROS: DENIES CP, SOB, SHAKES AND SWEATING PE: ALERT AND ORIENTED X 3 SKIN WARM AND DRY +PERRLA, EOMS INTACT BL EXT FULL ROM, NO TREMORS, AMB AD [place]AM[place]IA DENIES SI/HI A/P: OPIOD DEPENDENCE PATIENT STABLE FOR D/C TODAY Ambulatory Orders Buprenorphine/Naloxone [Suboxone 2 mg/0.5MG Sl Film -] 1 each SL DAILY #7 film MDD 2MG 10/18/19 - Medication Discharge Medications: Ambulatory Orders Buprenorphine/Naloxone [Suboxone 2 mg/0.5MG Sl Film -] 1 each SL DAILY #7 film MDD 2MG 10/18/19 - Medication-Assisted Treatment (MAT) Medication-Assisted Treatment (MAT): Yes Medication Prescribed: Suboxone MAT Follow-up Referral: [facility]. - Discharge Instructions Diet, activity, other medical instructions: Diet: regular as tolerated Activity: as tolerated Other medical instructions: follow up with pcp as recommended - Follow-up Referral Minutes to complete discharge: 30 - AMA Did Patient Leave Against Medical Advice: No
== END 2019-10-18 09:20 | disposition home or self-care (01) | DRG 772 ==
LOC: YASAS 12:20 → Y3W 12:21
PROVIDERS: ADMIT Neuromusculoskeletal Medicine & OMM; ATTEND Neuromusculoskeletal Medicine & OMM
PROC: HZ42ZZZ Group Counseling for Substance Abuse Treatment, Cognitive-Behavioral (ICD-10-PCS; principal; 2019-09-20)
DX: F11.23 Opioid dependence with withdrawal (principal); F10.20 Alcohol dependence, uncomplicated; Z87.891 Personal history of nicotine dependence
CPT/HCPCS: 36415; 84132

== ENCOUNTER 2020-10-07 12:31 | Inpatient (IN) | payer OTHER ==
[2020-10-07 13:23] VITALS: BMI 27.4
[2020-10-07] MEDS ORDERED: NICOTINE POLACRILEX 2 MG GUM BUC PRN (13:29)
[2020-10-07] MEDS ORDERED: METHADONE HCL 10 MG TABLET (FOR DETOX USE ONLY) PO ONE (13:29)
[2020-10-07] MEDS ORDERED: cloNIDine HCL 0.1 MG TABLET PO PRN (13:29)
[2020-10-07] MEDS ORDERED: BISMUTH SUBSALICYLATE 524 MG/30 ML UD PO PRN (13:29)
[2020-10-07] MEDS ORDERED: ONDANSETRON *ODT* 4 MG TABLET SL PRN (13:29)
[2020-10-07] MEDS ORDERED: MAGNESIUM HYDROX 2400MG/30ML ORAL SUSPENSION 30 ML CUP PO PRN (13:29)
[2020-10-07] MEDS ORDERED: chlordiazePOXIDE HCL 25 MG CAPSULE PO PRN (13:29)
[2020-10-07] MEDS ORDERED: MENTHOL/PHENOL 1 EACH UD MM PRN (13:29)
[2020-10-07] MEDS ORDERED: IBUPROFEN 400 MG TABLET (FP) PO PRN (13:29)
[2020-10-07] MEDS ORDERED: MAGNESIUM CITRATE 300 ML BOTTLE PO PRN (13:29)
[2020-10-07] MEDS ORDERED: ACETAMINOPHEN 325 MG TABLET (FP) PO PRN ×2 (13:29)
[2020-10-07] MEDS ORDERED: MAG HYDROX/AL HYDROX/SIMETH 30 ML UNIT-DOSE CUP PO PRN (13:29)
[2020-10-07] MEDS: METHOCARBAMOL 500 MG TABLET PO PRN (14:08)
[2020-10-07] MEDS: hydrOXYzine PAMOATE 25 MG CAPSULE (FP) PO SCH ×3 (14:08→22:16)
[2020-10-07] MEDS: NICOTINE 21 MG/24 HOURS TOPICAL PATCH TD SCH (14:08)
[2020-10-07] MEDS: chlordiazePOXIDE HCL 25 MG CAPSULE PO SCH ×2 (17:21→22:17)
[2020-10-07] MEDS: MELATONIN 5 MG TABLETS PO SCH (22:16)
[2020-10-07] MEDS: THIAMINE HCL 100 MG TABLET (FP) PO SCH (22:16)
[2020-10-08] MEDS: chlordiazePOXIDE HCL 25 MG CAPSULE PO SCH ×4 (05:42→22:19)
[2020-10-08] MEDS: hydrOXYzine PAMOATE 25 MG CAPSULE (FP) PO SCH ×5 (05:42→22:19)
[2020-10-08] MEDS ORDERED: METHADONE HCL 10 MG TABLET (FOR DETOX USE ONLY) ONE (08:41)
[2020-10-08] MEDS ORDERED: METHADONE HCL 5 MG TABLET (FOR DETOX USE ONLY) ONE (08:41)
[2020-10-08] MEDS ORDERED: METHADONE (DETOX) 20 MG, METHADONE (DETOX) 5 MG PO ONE (10:00)
[2020-10-08] MEDS: PRENATAL VITAMINS W/ FOLIC ACID TABLET (FP) PO SCH (10:06)
[2020-10-08] MEDS: NICOTINE 21 MG/24 HOURS TOPICAL PATCH TD SCH (10:07)
[2020-10-08 11:08] LABS: HEMATOCRIT 41.3 % (35.4-49); HEMOGLOBIN 14.3 GM/dL (11.7-16.9); MCH 33.4 pg (25.7-33.7); MCHC 34.6 g/dl (32.0-35.9); MEAN CELL VOLUME 96.6 fl (80-96); MEAN PLT VOLUME 9.8 fl (7.5-11.1); PLATELET COUNT 216 K/MM3 (134-434); RBC 4.27 M/mm3 (4.00-5.60); RDW 14.1 % (11.9-15.9); WHITE BLOOD COUNT 5.7 K/mm3 (4.0-10.0)
[2020-10-08 11:11] LABS: POTASSIUM 4.2 mmol/L (3.5-5.1)
[2020-10-08 11:17] LABS: BLOOD UREA NITROGEN 10.9 mg/dL (7-18)
[2020-10-08 11:18] LABS: ALBUMIN 3.1 g/dl (3.4-5.0); CALCIUM 8.1 mg/dL (8.5-10.1)
[2020-10-08 11:22] LABS: BILIRUBIN,TOTAL 0.5 mg/dL (0.2-1)
[2020-10-08] MEDS: MELATONIN 5 MG TABLETS PO SCH (22:19)
[2020-10-08] MEDS: THIAMINE HCL 100 MG TABLET (FP) PO SCH (22:19)
[2020-10-09] MEDS: hydrOXYzine PAMOATE 25 MG CAPSULE (FP) PO SCH ×5 (05:32→22:10)
[2020-10-09] MEDS: chlordiazePOXIDE HCL 25 MG CAPSULE PO SCH ×4 (05:32→22:10)
[2020-10-09] MEDS ORDERED: MASKS NR ONE (05:35)
[2020-10-09] MEDS ORDERED: METHADONE HCL 10 MG TABLET (FOR DETOX USE ONLY) PO ONE (10:00)
[2020-10-09] MEDS: NICOTINE 21 MG/24 HOURS TOPICAL PATCH TD SCH (10:13)
[2020-10-09] MEDS: PRENATAL VITAMINS W/ FOLIC ACID TABLET (FP) PO SCH (10:13)
[2020-10-09] MEDS ORDERED: SODIUM CHLORIDE NASAL SPRAY 44 ML BOTTLE NS PRN (11:46)
[2020-10-09 13:43] LABS: URINE APPEARANCE Error; URINE BILIRUBIN NEGATIVE (NEGATIVE); URINE COLOR YELLOW; URINE GLUCOSE (UA) NEGATIVE (NEGATIVE); URINE KETONE NEGATIVE (NEGATIVE); URINE LEUK ESTERASE NEGATIVE (NEGATIVE); URINE NITRITE NEGATIVE (NEGATIVE); URINE PROTEIN NEGATIVE (NEGATIVE); URINE UROBILINOGEN 0.2 mg/dL (0.2-1.0)
[2020-10-09] MEDS: METHOCARBAMOL 500 MG TABLET PO PRN (17:16)
[2020-10-09 17:41] LABS: HIV INTERPRETATION NEGATIVE (NEGATIVE)
[2020-10-09] MEDS: THIAMINE HCL 100 MG TABLET (FP) PO SCH (22:10)
[2020-10-09] MEDS: MELATONIN 5 MG TABLETS PO SCH (22:10)
[2020-10-10] MEDS ORDERED: chlordiazePOXIDE HCL 10 MG CAPSULE PO PRN
[2020-10-10] MEDS: chlordiazePOXIDE HCL 10 MG CAPSULE PO SCH ×4 (05:29→22:01)
[2020-10-10] MEDS: hydrOXYzine PAMOATE 25 MG CAPSULE (FP) PO SCH ×2 (05:29→10:15)
[2020-10-10] MEDS ORDERED: METHADONE HCL 10 MG TABLET (FOR DETOX USE ONLY) ONE ×2 (08:49→10:20)
[2020-10-10] MEDS ORDERED: METHADONE HCL 5 MG TABLET (FOR DETOX USE ONLY) ONE ×2 (08:49→10:20)
[2020-10-10] MEDS ORDERED: METHADONE (DETOX) 10 MG, METHADONE (DETOX) 5 MG PO ONE (10:00)
[2020-10-10] MEDS: PRENATAL VITAMINS W/ FOLIC ACID TABLET (FP) PO SCH (10:15)
[2020-10-10] MEDS: NICOTINE 21 MG/24 HOURS TOPICAL PATCH TD SCH (10:15)
[2020-10-10] MEDS: hydrOXYzine PAMOATE 25 MG CAPSULE (FP) PO PRN (17:13)
[2020-10-10] MEDS: THIAMINE HCL 100 MG TABLET (FP) PO SCH (22:01)
[2020-10-10] MEDS: MELATONIN 5 MG TABLETS PO SCH (22:01)
[2020-10-11] MEDS: chlordiazePOXIDE HCL 10 MG CAPSULE PO SCH ×2 (05:51→17:14)
[2020-10-11] MEDS: hydrOXYzine PAMOATE 25 MG CAPSULE (FP) PO PRN ×3 (05:52→22:19)
[2020-10-11] MEDS: PRENATAL VITAMINS W/ FOLIC ACID TABLET (FP) PO SCH (09:12)
[2020-10-11] MEDS: NICOTINE 21 MG/24 HOURS TOPICAL PATCH TD SCH (09:13)
[2020-10-11] MEDS ORDERED: METHADONE HCL 10 MG TABLET (FOR DETOX USE ONLY) PO ONE (10:00)
[2020-10-11] MEDS: THIAMINE HCL 100 MG TABLET (FP) PO SCH (22:20)
[2020-10-11] MEDS: MELATONIN 5 MG TABLETS PO SCH (22:20)
[2020-10-12] MEDS ORDERED: chlordiazePOXIDE HCL 10 MG CAPSULE PO ONE (05:00)
[2020-10-12] MEDS ORDERED: METHADONE HCL 5 MG TABLET (FOR DETOX USE ONLY) PO ONE (06:00)
[2020-10-12] MEDS: PRENATAL VITAMINS W/ FOLIC ACID TABLET (FP) PO SCH (09:53)
[2020-10-12] MEDS: NICOTINE 21 MG/24 HOURS TOPICAL PATCH TD SCH (09:53)
[2020-10-12 12:58] VITALS: BP 135/87; PULSE 86; TEMP 97.8
== END 2020-10-12 15:15 | disposition other institution (70) | DRG 773 ==
LOC: YASAS 12:31 → Y3N 13:25
PROVIDERS: ADMIT Allergy & Immunology; ATTEND Allergy & Immunology
PROC: HZ2ZZZZ Detoxification Services for Substance Abuse Treatment (ICD-10-PCS; principal; 2020-10-07)
DX: F11.23 Opioid dependence with withdrawal (principal); F10.230 Alcohol dependence with withdrawal, uncomplicated; F14.20 Cocaine dependence, uncomplicated; F13.10 Sedative, hypnotic or anxiolytic abuse, uncomplicated; F12.20 Cannabis dependence, uncomplicated; F17.210 Nicotine dependence, cigarettes, uncomplicated; Z87.2 Personal history of diseases of the skin and subcutaneous tissue; Z94.5 Skin transplant status
CPT/HCPCS: 36415; 80053; 81003; 85027; 86780; 87389; C9803; Q0162; U0003

== ENCOUNTER 2020-10-12 15:19 | Inpatient (IN) | payer OTHER ==
[2020-10-12] MEDS ORDERED: hydrOXYzine PAMOATE 25 MG CAPSULE (FP) PO PRN (16:16)
[2020-10-12] MEDS ORDERED: LOPERAMIDE HCL 2 MG CAPSULE PO PRN (16:16)
[2020-10-12] MEDS ORDERED: MAGNESIUM CITRATE 300 ML BOTTLE PO PRN (16:16)
[2020-10-12] MEDS ORDERED: MAG HYDROX/AL HYDROX/SIMETH 30 ML UNIT-DOSE CUP PO PRN (16:16)
[2020-10-12] MEDS ORDERED: P-EPHED 60MG/TRIPROLIDI 2.5MG TABLET PO PRN (16:16)
[2020-10-12] MEDS ORDERED: MAGNESIUM HYDROX 2400MG/30ML ORAL SUSPENSION 30 ML CUP PO PRN (16:16)
[2020-10-12] MEDS ORDERED: IBUPROFEN 400 MG TABLET (FP) PO PRN (16:16)
[2020-10-12] MEDS ORDERED: guaiFENesin 200 MG/10 ML 10 ML UNIT-DOSE CUPS PO PRN (16:16)
[2020-10-12] MEDS ORDERED: ACETAMINOPHEN 325 MG TABLET (FP) PO PRN (16:16)
[2020-10-12] MEDS ORDERED: MENTHOL/PHENOL 1 EACH UD MM PRN (16:16)
[2020-10-12] MEDS ORDERED: MELATONIN 5 MG TABLETS PO SCH (22:00)
[2020-10-12] MEDS ORDERED: THIAMINE HCL 100 MG TABLET (FP) PO SCH (22:00)
[2020-10-13 07:02] VITALS: BP 128/88; PULSE 70; TEMP 97.3
[2020-10-13] MEDS ORDERED: PRENATAL VITAMINS W/ FOLIC ACID TABLET (FP) PO SCH (10:00)
[2020-10-13] MEDS ORDERED: NICOTINE POLACRILEX 2 MG GUM BUC PRN (11:28)
[2020-10-13] MEDS ORDERED: NICOTINE 21 MG/24 HOURS TOPICAL PATCH TD SCH (11:30)
== END 2020-10-13 13:53 | disposition left against medical advice (07) | DRG 770 ==
LOC: YASAS 15:19 → Y5N 15:22
PROVIDERS: ADMIT Allergy & Immunology; ATTEND Allergy & Immunology
PROC: HZ42ZZZ Group Counseling for Substance Abuse Treatment, Cognitive-Behavioral (ICD-10-PCS; principal; 2020-10-12)
DX: F10.20 Alcohol dependence, uncomplicated (principal); F11.20 Opioid dependence, uncomplicated; F13.20 Sedative, hypnotic or anxiolytic dependence, uncomplicated; F14.20 Cocaine dependence, uncomplicated; F12.20 Cannabis dependence, uncomplicated; F17.210 Nicotine dependence, cigarettes, uncomplicated

== ENCOUNTER 2022-01-11 10:55 | Inpatient (IN) | payer OTHER ==
[2022-01-11] MEDS ORDERED: chlordiazePOXIDE HCL 25 MG CAPSULE PO PRN (11:28)
[2022-01-11] MEDS ORDERED: ONDANSETRON *ODT* 4 MG TABLET SL PRN (11:28)
[2022-01-11] MEDS ORDERED: ACETAMINOPHEN 325 MG TABLET (FP) PO PRN (11:28)
[2022-01-11] MEDS ORDERED: BISMUTH SUBSALICYLATE 262 MG/15 ML BTL PO PRN (11:28)
[2022-01-11] MEDS ORDERED: cloNIDine HCL 0.1 MG TABLET PO PRN (11:28)
[2022-01-11] MEDS ORDERED: NICOTINE 10 MG CARTRIDGE (INHALER) IH PRN (11:28)
[2022-01-11] MEDS ORDERED: methaDONE HCL 10 MG TABLET (FOR DETOX USE ONLY) PO ONE (11:28)
[2022-01-11] MEDS ORDERED: LOPERAMIDE HCL 2 MG CAPSULE PO PRN (11:28)
[2022-01-11] MEDS ORDERED: MAGNESIUM HYDROX 2400MG/30ML ORAL SUSPENSION 30 ML CUP PO PRN (11:28)
[2022-01-11] MEDS ORDERED: MAGNESIUM CITRATE 300 ML BOTTLE PO PRN (11:28)
[2022-01-11] MEDS ORDERED: BENZOCAINE/MENTHOL (CHLORASEPTIC ) LOZENGE MM PRN (11:28)
[2022-01-11] MEDS ORDERED: DICYCLOMINE HCL 10 MG CAPSULE PO PRN (11:28)
[2022-01-11] MEDS ORDERED: MAG HYDROX/AL HYDROX/SIMETH 30 ML UNIT-DOSE CUP PO PRN (11:28)
[2022-01-11 11:54] VITALS: BMI 26.6
[2022-01-11] MEDS ORDERED: chlordiazePOXIDE HCL 25 MG CAPSULE ONE (14:30)
[2022-01-11] MEDS ORDERED: methaDONE HCL 10 MG TABLET (FOR DETOX USE ONLY) ONE (14:30)
[2022-01-11] MEDS: chlordiazePOXIDE HCL 25 MG CAPSULE PO SCH ×3 (14:33→22:21)
[2022-01-11] MEDS: PRENATAL VITAMINS W/ FOLIC ACID TABLET (FP) PO SCH (15:59)
[2022-01-11] MEDS: hydrOXYzine PAMOATE 25 MG CAPSULE (FP) PO SCH ×3 (16:00→22:21)
[2022-01-11] MEDS: THIAMINE HCL 100 MG TABLET (FP) PO SCH (22:21)
[2022-01-11] MEDS: MELATONIN 5 MG TABLETS PO SCH (22:21)
[2022-01-12] MEDS: chlordiazePOXIDE HCL 25 MG CAPSULE PO SCH ×4 (06:24→22:28)
[2022-01-12] MEDS: hydrOXYzine PAMOATE 25 MG CAPSULE (FP) PO SCH ×5 (06:25→22:28)
[2022-01-12] MEDS ORDERED: methaDONE HCL 10 MG TABLET (FOR DETOX USE ONLY) ONE (09:05)
[2022-01-12] MEDS: NICOTINE 14 MG/24 HOURS TOPICAL PATCH TD SCH (10:39)
[2022-01-12] MEDS: PRENATAL VITAMINS W/ FOLIC ACID TABLET (FP) PO SCH (10:40)
[2022-01-12 13:26] LABS: CALCIUM 8.7 mg/dL (8.5-10.1)
[2022-01-12 13:27] LABS: ALBUMIN 2.9 g/dl (3.4-5.0); BLOOD UREA NITROGEN 9.9 mg/dL (7-18)
[2022-01-12 13:29] LABS: HEMATOCRIT 47.4 % (35.4-49); HEMOGLOBIN 16.2 GM/dL (11.7-16.9); MCH 32.7 pg (25.7-33.7); MCHC 34.2 g/dl (32.0-35.9); MEAN CELL VOLUME 95.8 fl (80-96); MEAN PLT VOLUME 9.3 fl (7.5-11.1); PLATELET COUNT 279 10^3/uL (134-434); RBC 4.95 M/mm3 (4.00-5.60); RDW 14.4 % (11.9-15.9); WHITE BLOOD COUNT 8.1 K/mm3 (4.0-10.0)
[2022-01-12 13:30] LABS: CREATININE 0.8 mg/dL (0.55-1.3)
[2022-01-12 13:32] LABS: TOT PROT 6.1 g/dl (6.4-8.2)
[2022-01-12 13:33] LABS: BILIRUBIN,TOTAL 0.5 mg/dL (0.2-1)
[2022-01-12] MEDS: MELATONIN 5 MG TABLETS PO SCH (22:28)
[2022-01-12] MEDS: THIAMINE HCL 100 MG TABLET (FP) PO SCH (22:28)
[2022-01-13] MEDS: METHOCARBAMOL 500 MG TABLET PO PRN ×3 (03:37→22:24)
[2022-01-13] MEDS: IBUPROFEN 400 MG TABLET (FP) PO PRN ×2 (03:37→22:24)
[2022-01-13] MEDS: hydrOXYzine PAMOATE 25 MG CAPSULE (FP) PO SCH ×5 (05:58→22:22)
[2022-01-13] MEDS: chlordiazePOXIDE HCL 25 MG CAPSULE PO SCH ×4 (05:58→22:23)
[2022-01-13] MEDS: ACETAMINOPHEN 325 MG TABLET (FP) PO PRN ×2 (07:18→17:46)
[2022-01-13] MEDS ORDERED: methaDONE HCL 10 MG TABLET (FOR DETOX USE ONLY) PO ONE (10:00)
[2022-01-13] MEDS: PRENATAL VITAMINS W/ FOLIC ACID TABLET (FP) PO SCH (10:03)
[2022-01-13] MEDS: NICOTINE 14 MG/24 HOURS TOPICAL PATCH TD SCH (10:04)
[2022-01-13 16:07] LABS: SARS-CoV-2 NAA Not Detected (Not Detected)
[2022-01-13] MEDS: MELATONIN 5 MG TABLETS PO SCH (22:22)
[2022-01-13] MEDS: THIAMINE HCL 100 MG TABLET (FP) PO SCH (22:22)
[2022-01-14] MEDS ORDERED: chlordiazePOXIDE HCL 10 MG CAPSULE PO PRN
[2022-01-14] MEDS: chlordiazePOXIDE HCL 10 MG CAPSULE PO SCH ×4 (05:37→22:19)
[2022-01-14] MEDS: hydrOXYzine PAMOATE 25 MG CAPSULE (FP) PO SCH ×5 (05:37→22:19)
[2022-01-14] MEDS ORDERED: methaDONE HCL 10 MG TABLET (FOR DETOX USE ONLY) ONE (10:03)
[2022-01-14] MEDS: METHOCARBAMOL 500 MG TABLET PO PRN (10:35)
[2022-01-14] MEDS: PRENATAL VITAMINS W/ FOLIC ACID TABLET (FP) PO SCH (10:35)
[2022-01-14] MEDS: NICOTINE 14 MG/24 HOURS TOPICAL PATCH TD SCH (10:35)
[2022-01-14] MEDS: THIAMINE HCL 100 MG TABLET (FP) PO SCH (22:19)
[2022-01-14] MEDS: MELATONIN 5 MG TABLETS PO SCH (22:19)
[2022-01-15] MEDS: chlordiazePOXIDE HCL 10 MG CAPSULE PO SCH ×2 (05:48→17:57)
[2022-01-15] MEDS: hydrOXYzine PAMOATE 25 MG CAPSULE (FP) PO SCH ×5 (05:49→22:41)
[2022-01-15] MEDS ORDERED: methaDONE HCL 10 MG TABLET (FOR DETOX USE ONLY) PO ONE (10:00)
[2022-01-15] MEDS: PRENATAL VITAMINS W/ FOLIC ACID TABLET (FP) PO SCH (10:06)
[2022-01-15] MEDS: NICOTINE 14 MG/24 HOURS TOPICAL PATCH TD SCH (10:07)
[2022-01-15] MEDS: THIAMINE HCL 100 MG TABLET (FP) PO SCH (22:41)
[2022-01-15] MEDS: MELATONIN 5 MG TABLETS PO SCH (22:41)
[2022-01-16] MEDS ORDERED: chlordiazePOXIDE HCL 10 MG CAPSULE PO ONE (05:00)
[2022-01-16] MEDS: hydrOXYzine PAMOATE 25 MG CAPSULE (FP) PO SCH ×2 (06:39→10:27)
[2022-01-16 09:12] VITALS: BP 113/90; PULSE 89; TEMP 97.4
[2022-01-16] MEDS: PRENATAL VITAMINS W/ FOLIC ACID TABLET (FP) PO SCH (10:27)
[2022-01-16] MEDS: NICOTINE 14 MG/24 HOURS TOPICAL PATCH TD SCH (10:28)
== END 2022-01-16 11:25 | disposition other institution (70) | DRG 774 ==
LOC: YASAS 10:55 → Y3N 12:54 → UNDOADMIN 12:54 → Y3N 23:40
PROVIDERS: ADMIT Allergy & Immunology; ATTEND Allergy & Immunology
PROC: HZ2ZZZZ Detoxification Services for Substance Abuse Treatment (ICD-10-PCS; principal; 2022-01-11)
DX: F10.230 Alcohol dependence with withdrawal, uncomplicated (principal); F14.20 Cocaine dependence, uncomplicated; F12.20 Cannabis dependence, uncomplicated; F17.210 Nicotine dependence, cigarettes, uncomplicated; F19.282 Other psychoactive substance dependence with psychoactive substance-induced sleep disorder; F19.24 Other psychoactive substance dependence with psychoactive substance-induced mood disorder; Z87.39 Personal history of other diseases of the musculoskeletal system and connective tissue; Z94.5 Skin transplant status
CPT/HCPCS: 36415; 80053; 85027; 86780; 87811; 93005; 93010; C9803-CS; U0003; U0005

== ENCOUNTER 2022-01-16 12:01 | Inpatient (IN) | payer OTHER ==
[2022-01-16] MEDS ORDERED: MAGNESIUM CITRATE 300 ML BOTTLE PO PRN (14:35)
[2022-01-16] MEDS ORDERED: ACETAMINOPHEN 325 MG TABLET (FP) PO PRN (14:35)
[2022-01-16] MEDS ORDERED: BENZOCAINE/MENTHOL (CHLORASEPTIC ) LOZENGE MM PRN (14:35)
[2022-01-16] MEDS ORDERED: guaiFENesin 200 MG/10 ML 10 ML UNIT-DOSE CUPS PO PRN (14:35)
[2022-01-16] MEDS ORDERED: MAGNESIUM HYDROX 2400MG/30ML ORAL SUSPENSION 30 ML CUP PO PRN (14:35)
[2022-01-16] MEDS ORDERED: MAG HYDROX/AL HYDROX/SIMETH 30 ML UNIT-DOSE CUP PO PRN (14:35)
[2022-01-16] MEDS ORDERED: P-EPHED 60MG/TRIPROLIDI 2.5MG TABLET PO PRN (14:35)
[2022-01-16] MEDS ORDERED: LOPERAMIDE HCL 2 MG CAPSULE PO PRN (14:35)
[2022-01-16] MEDS: hydrOXYzine PAMOATE 25 MG CAPSULE (FP) PO SCH ×2 (18:50→21:17)
[2022-01-16] MEDS: THIAMINE HCL 100 MG TABLET (FP) PO SCH (21:17)
[2022-01-16] MEDS: IBUPROFEN 400 MG TABLET (FP) PO PRN (21:17)
[2022-01-16] MEDS: MELATONIN 5 MG TABLETS PO SCH (21:17)
[2022-01-16] MEDS: NICOTINE 10 MG CARTRIDGE (INHALER) IH PRN (21:34)
[2022-01-17] MEDS: hydrOXYzine PAMOATE 25 MG CAPSULE (FP) PO SCH ×5 (06:10→21:22)
[2022-01-17] MEDS: PRENATAL VITAMINS W/ FOLIC ACID TABLET (FP) PO SCH (10:00)
[2022-01-17] MEDS: NICOTINE 14 MG/24 HOURS TOPICAL PATCH TD SCH (10:00)
[2022-01-17] MEDS ORDERED: NICOTINE 7 MG/24 HOURS TOPICAL PATCH TD SCH (10:00)
[2022-01-17] MEDS: IBUPROFEN 400 MG TABLET (FP) PO PRN (10:02)
[2022-01-17] MEDS: MELATONIN 5 MG TABLETS PO SCH (21:22)
[2022-01-17] MEDS: THIAMINE HCL 100 MG TABLET (FP) PO SCH (21:22)
[2022-01-18] MEDS: hydrOXYzine PAMOATE 25 MG CAPSULE (FP) PO SCH ×5 (06:57→21:19)
[2022-01-18] MEDS: PRENATAL VITAMINS W/ FOLIC ACID TABLET (FP) PO SCH (09:51)
[2022-01-18] MEDS: NICOTINE 14 MG/24 HOURS TOPICAL PATCH TD SCH (09:52)
[2022-01-18] MEDS: MELATONIN 5 MG TABLETS PO SCH (21:19)
[2022-01-18] MEDS: THIAMINE HCL 100 MG TABLET (FP) PO SCH (21:19)
[2022-01-18] MEDS: NICOTINE 10 MG CARTRIDGE (INHALER) IH PRN (21:19)
[2022-01-19] MEDS: hydrOXYzine PAMOATE 25 MG CAPSULE (FP) PO SCH ×5 (06:18→21:17)
[2022-01-19] MEDS: NICOTINE 14 MG/24 HOURS TOPICAL PATCH TD SCH (09:27)
[2022-01-19] MEDS: PRENATAL VITAMINS W/ FOLIC ACID TABLET (FP) PO SCH (09:27)
[2022-01-19] MEDS: IBUPROFEN 400 MG TABLET (FP) PO PRN (17:01)
[2022-01-19] MEDS: MELATONIN 5 MG TABLETS PO SCH (21:17)
[2022-01-19] MEDS: THIAMINE HCL 100 MG TABLET (FP) PO SCH (21:17)
[2022-01-19] MEDS: NICOTINE 10 MG CARTRIDGE (INHALER) IH PRN (21:21)
[2022-01-20] MEDS: hydrOXYzine PAMOATE 25 MG CAPSULE (FP) PO SCH ×3 (06:07→13:05)
[2022-01-20] MEDS: NICOTINE 14 MG/24 HOURS TOPICAL PATCH TD SCH (10:37)
[2022-01-20] MEDS: PRENATAL VITAMINS W/ FOLIC ACID TABLET (FP) PO SCH (10:37)
[2022-01-20] MEDS: IBUPROFEN 400 MG TABLET (FP) PO PRN (12:56)
[2022-01-20] MEDS ORDERED: cloNIDine HCL 0.1 MG TABLET PO ONE (15:04)
[2022-01-20] MEDS ORDERED: QUEtiapine FUMARATE 50 MG TABLET PO ONE ×2 (15:04→22:00)
[2022-01-20] MEDS: METHOCARBAMOL 500 MG TABLET PO PRN (15:21)
[2022-01-20] MEDS: MELATONIN 5 MG TABLETS PO SCH (21:24)
[2022-01-20] MEDS: THIAMINE HCL 100 MG TABLET (FP) PO SCH (21:24)
[2022-01-21] MEDS: PRENATAL VITAMINS W/ FOLIC ACID TABLET (FP) PO SCH (10:23)
[2022-01-21] MEDS: METHOCARBAMOL 500 MG TABLET PO PRN (10:23)
[2022-01-21] MEDS: hydrOXYzine PAMOATE 25 MG CAPSULE (FP) PO PRN (10:23)
[2022-01-21] MEDS: NICOTINE 10 MG CARTRIDGE (INHALER) IH PRN (10:24)
[2022-01-21] MEDS: NICOTINE 14 MG/24 HOURS TOPICAL PATCH TD SCH (10:24)
[2022-01-21] MEDS ORDERED: BUPRENORPHINE/NALOXONE 4 MG/1 MG FILM PACKET SL ONE ×2 (10:30→20:00)
[2022-01-21] MEDS: MELATONIN 5 MG TABLETS PO SCH (21:31)
[2022-01-21] MEDS: THIAMINE HCL 100 MG TABLET (FP) PO SCH (21:31)
[2022-01-22] MEDS: PRENATAL VITAMINS W/ FOLIC ACID TABLET (FP) PO SCH (10:47)
[2022-01-22] MEDS: BUPRENORPHINE/NALOXONE 8 MG/2 MG FILM PACKET SL SCH (10:47)
[2022-01-22] MEDS: METHOCARBAMOL 500 MG TABLET PO PRN (10:47)
[2022-01-22] MEDS: hydrOXYzine PAMOATE 25 MG CAPSULE (FP) PO PRN (10:47)
[2022-01-22] MEDS: NICOTINE 14 MG/24 HOURS TOPICAL PATCH TD SCH (12:38)
[2022-01-22] MEDS: THIAMINE HCL 100 MG TABLET (FP) PO SCH (21:21)
[2022-01-22] MEDS: MELATONIN 5 MG TABLETS PO SCH (21:21)
[2022-01-22] MEDS: NICOTINE 10 MG CARTRIDGE (INHALER) IH PRN (21:21)
[2022-01-23] MEDS: BUPRENORPHINE/NALOXONE 8 MG/2 MG FILM PACKET SL SCH (09:29)
[2022-01-23] MEDS: PRENATAL VITAMINS W/ FOLIC ACID TABLET (FP) PO SCH (09:29)
[2022-01-23] MEDS: NICOTINE 10 MG CARTRIDGE (INHALER) IH PRN ×2 (09:29→18:01)
[2022-01-23] MEDS: NICOTINE 14 MG/24 HOURS TOPICAL PATCH TD SCH (11:22)
[2022-01-23] MEDS: THIAMINE HCL 100 MG TABLET (FP) PO SCH (21:23)
[2022-01-23] MEDS: MELATONIN 5 MG TABLETS PO SCH (21:23)
[2022-01-24] MEDS: PRENATAL VITAMINS W/ FOLIC ACID TABLET (FP) PO SCH (10:03)
[2022-01-24] MEDS: NICOTINE 14 MG/24 HOURS TOPICAL PATCH TD SCH (10:04)
[2022-01-24] MEDS: NICOTINE 10 MG CARTRIDGE (INHALER) IH PRN ×2 (10:04→13:19)
[2022-01-24] MEDS: BUPRENORPHINE/NALOXONE 4 MG/1 MG FILM PACKET SL SCH ×2 (10:04→21:06)
[2022-01-24] MEDS: THIAMINE HCL 100 MG TABLET (FP) PO SCH (21:06)
[2022-01-24] MEDS: MELATONIN 5 MG TABLETS PO SCH (21:06)
[2022-01-25] MEDS: BUPRENORPHINE/NALOXONE 4 MG/1 MG FILM PACKET SL SCH ×2 (09:56→21:25)
[2022-01-25] MEDS: PRENATAL VITAMINS W/ FOLIC ACID TABLET (FP) PO SCH (09:56)
[2022-01-25] MEDS: NICOTINE 14 MG/24 HOURS TOPICAL PATCH TD SCH (09:56)
[2022-01-25] MEDS: NICOTINE 10 MG CARTRIDGE (INHALER) IH PRN ×2 (09:57→21:25)
[2022-01-25] MEDS: MELATONIN 5 MG TABLETS PO SCH (21:24)
[2022-01-25] MEDS: THIAMINE HCL 100 MG TABLET (FP) PO SCH (21:25)
[2022-01-26] MEDS: PRENATAL VITAMINS W/ FOLIC ACID TABLET (FP) PO SCH (10:15)
[2022-01-26] MEDS: BUPRENORPHINE/NALOXONE 4 MG/1 MG FILM PACKET SL SCH ×2 (10:15→21:23)
[2022-01-26] MEDS: NICOTINE 14 MG/24 HOURS TOPICAL PATCH TD SCH (10:16)
[2022-01-26] MEDS: NICOTINE 10 MG CARTRIDGE (INHALER) IH PRN ×2 (10:16→21:24)
[2022-01-26] MEDS: MELATONIN 5 MG TABLETS PO SCH (21:23)
[2022-01-26] MEDS: THIAMINE HCL 100 MG TABLET (FP) PO SCH (21:23)
[2022-01-27] MEDS: PRENATAL VITAMINS W/ FOLIC ACID TABLET (FP) PO SCH (10:28)
[2022-01-27] MEDS: BUPRENORPHINE/NALOXONE 4 MG/1 MG FILM PACKET SL SCH ×2 (10:28→21:14)
[2022-01-27] MEDS: NICOTINE 14 MG/24 HOURS TOPICAL PATCH TD SCH (10:28)
[2022-01-27] MEDS: NICOTINE 10 MG CARTRIDGE (INHALER) IH PRN (10:28)
[2022-01-27] MEDS: MELATONIN 5 MG TABLETS PO SCH (21:14)
[2022-01-27] MEDS: THIAMINE HCL 100 MG TABLET (FP) PO SCH (21:14)
[2022-01-28 06:58] VITALS: TEMP 98.1
[2022-01-28] MEDS: PRENATAL VITAMINS W/ FOLIC ACID TABLET (FP) PO SCH (10:13)
[2022-01-28] MEDS: BUPRENORPHINE/NALOXONE 4 MG/1 MG FILM PACKET SL SCH ×2 (10:13→21:21)
[2022-01-28] MEDS: NICOTINE 14 MG/24 HOURS TOPICAL PATCH TD SCH (10:14)
[2022-01-28] MEDS: NICOTINE 10 MG CARTRIDGE (INHALER) IH PRN ×2 (15:12→21:21)
[2022-01-28] MEDS: MELATONIN 5 MG TABLETS PO SCH (21:20)
[2022-01-28] MEDS: THIAMINE HCL 100 MG TABLET (FP) PO SCH (21:20)
[2022-01-29] MEDS: BUPRENORPHINE/NALOXONE 4 MG/1 MG FILM PACKET SL SCH ×2 (10:05→21:09)
[2022-01-29] MEDS: PRENATAL VITAMINS W/ FOLIC ACID TABLET (FP) PO SCH (10:05)
[2022-01-29] MEDS: NICOTINE 14 MG/24 HOURS TOPICAL PATCH TD SCH (10:06)
[2022-01-29 10:24] VITALS: BP 122/69; PULSE 72
[2022-01-29] MEDS: NICOTINE 10 MG CARTRIDGE (INHALER) IH PRN (13:14)
[2022-01-29] MEDS: THIAMINE HCL 100 MG TABLET (FP) PO SCH (21:09)
[2022-01-29] MEDS: MELATONIN 5 MG TABLETS PO SCH (21:09)
[2022-01-30] MEDS: PRENATAL VITAMINS W/ FOLIC ACID TABLET (FP) PO SCH (10:26)
[2022-01-30] MEDS: BUPRENORPHINE/NALOXONE 4 MG/1 MG FILM PACKET SL SCH ×2 (10:26→21:19)
[2022-01-30] MEDS: NICOTINE 14 MG/24 HOURS TOPICAL PATCH TD SCH (10:27)
[2022-01-30] MEDS: NICOTINE 10 MG CARTRIDGE (INHALER) IH PRN (18:47)
[2022-01-30] MEDS: MELATONIN 5 MG TABLETS PO SCH (21:18)
[2022-01-30] MEDS: THIAMINE HCL 100 MG TABLET (FP) PO SCH (21:18)
[2022-01-31] MEDS: BUPRENORPHINE/NALOXONE 4 MG/1 MG FILM PACKET SL SCH (09:05)
[2022-01-31] MEDS: PRENATAL VITAMINS W/ FOLIC ACID TABLET (FP) PO SCH (09:05)
[2022-01-31] MEDS: NICOTINE 10 MG CARTRIDGE (INHALER) IH PRN (09:07)
[2022-01-31] MEDS ORDERED: BUPRENORPHINE/NALOXONE 4 MG/1 MG FILM PACKET SL SCH (10:00)
== END 2022-01-31 09:16 | disposition home or self-care (01) | DRG 772 ==
LOC: YASAS 12:01 → Y3W 12:02
PROVIDERS: ADMIT Allergy & Immunology; ATTEND Allergy & Immunology
PROC: HZ42ZZZ Group Counseling for Substance Abuse Treatment, Cognitive-Behavioral (ICD-10-PCS; principal; 2022-01-16)
DX: F11.20 Opioid dependence, uncomplicated (principal); F10.20 Alcohol dependence, uncomplicated; F14.20 Cocaine dependence, uncomplicated; F12.20 Cannabis dependence, uncomplicated; F17.210 Nicotine dependence, cigarettes, uncomplicated; Z87.39 Personal history of other diseases of the musculoskeletal system and connective tissue; Z94.5 Skin transplant status; Z51.81 Encounter for therapeutic drug level monitoring
CPT/HCPCS: J0735

== ENCOUNTER 2023-03-27 20:05 | Inpatient (IN) | payer OTHER ==
[2023-03-28] MEDS ORDERED: MAG HYDROX/AL HYDROX/SIMETH 30 ML UNIT-DOSE CUP PO PRN (07:14)
[2023-03-28] MEDS ORDERED: ONDANSETRON *ODT* 4 MG TABLET SL PRN (07:14)
[2023-03-28] MEDS ORDERED: IBUPROFEN 400 MG TABLET (FP) PO PRN (07:14)
[2023-03-28] MEDS ORDERED: NALOXONE HCL (KLOXXADO) 8 MG SPRAY NS PRN (07:14)
[2023-03-28] MEDS ORDERED: LOPERAMIDE HCL 2 MG CAPSULE PO PRN (07:14)
[2023-03-28] MEDS ORDERED: DICYCLOMINE HCL 10 MG CAPSULE PO PRN (07:14)
[2023-03-28] MEDS ORDERED: BISMUTH SUBSALICYLATE 524 MG/30 ML PO PRN (07:14)
[2023-03-28] MEDS ORDERED: BENZOCAINE/MENTHOL (CHLORASEPTIC ) LOZENGE MM PRN (07:14)
[2023-03-28] MEDS ORDERED: BENZONATATE 200 MG CAPSULE PO PRN (07:14)
[2023-03-28] MEDS ORDERED: NALOXONE HCL 0.4 MG/ML VIAL IM PRN (07:14)
[2023-03-28] MEDS ORDERED: NICOTINE 10 MG CARTRIDGE (INHALER) IH PRN (07:14)
[2023-03-28] MEDS ORDERED: guaiFENesin 600 MG TABLET.ER (FP) PO PRN (07:14)
[2023-03-28] MEDS ORDERED: MAGNESIUM HYDROX 2400MG/30ML ORAL SUSPENSION 30 ML CUP PO PRN (07:14)
[2023-03-28] MEDS ORDERED: POLYETHYLENE GLYCOL (HEALTHYLAX) 3350 17 GM PACKET PO PRN (07:14)
[2023-03-28] MEDS ORDERED: ACETAMINOPHEN 325 MG TABLET (FP) PO PRN (07:14)
[2023-03-28] MEDS ORDERED: methaDONE HCL 10 MG TABLET (FOR DETOX USE ONLY) PO ONE (07:20)
[2023-03-28] MEDS ORDERED: diazePAM 5 MG TABLET ONE ×2 (08:00→10:47)
[2023-03-28] MEDS ORDERED: methaDONE HCL 10 MG TABLET (FOR DETOX USE ONLY) ONE (08:01)
[2023-03-28] MEDS ORDERED: cloNIDine HCL 0.1 MG TABLET ONE (08:01)
[2023-03-28] MEDS: diazePAM 5 MG TABLET PO PRN (08:06)
[2023-03-28] MEDS: cloNIDine HCL 0.1 MG TABLET PO PRN (08:09)
[2023-03-28] MEDS ORDERED: PRENATAL VITAMINS W/ FOLIC ACID TABLET (FP) PO ONE (10:47)
[2023-03-28] MEDS ORDERED: NICOTINE 21 MG/24 HOURS TOPICAL PATCH ONE (10:47)
[2023-03-28] MEDS: diazePAM 5 MG TABLET PO SCH ×3 (10:50→22:39)
[2023-03-28] MEDS: NICOTINE 21 MG/24 HOURS TOPICAL PATCH TD SCH (10:50)
[2023-03-28] MEDS: PRENATAL VITAMINS W/ FOLIC ACID TABLET (FP) PO SCH (10:50)
[2023-03-28] MEDS: METHOCARBAMOL 500 MG TABLET PO PRN (17:16)
[2023-03-28] MEDS: THIAMINE HCL 100 MG TABLET (FP) PO SCH (22:37)
[2023-03-28] MEDS: MELATONIN 5 MG TABLETS PO SCH (22:37)
[2023-03-28] MEDS: IBUPROFEN 600 MG TABLET (FP) PO PRN (22:38)
[2023-03-29] MEDS: diazePAM 5 MG TABLET PO SCH ×4 (05:42→22:33)
[2023-03-29] MEDS: PRENATAL VITAMINS W/ FOLIC ACID TABLET (FP) PO SCH (10:21)
[2023-03-29] MEDS: NICOTINE 21 MG/24 HOURS TOPICAL PATCH TD SCH (10:21)
[2023-03-29] MEDS: METHOCARBAMOL 500 MG TABLET PO PRN ×2 (10:21→22:33)
[2023-03-29 10:45] LABS: POTASSIUM 4.2 mmol/L (3.5-5.1)
[2023-03-29 10:51] LABS: ALBUMIN 3.2 g/dl (3.4-5.0); BLOOD UREA NITROGEN 7.8 mg/dL (7-18)
[2023-03-29 10:53] LABS: CREATININE 0.8 mg/dL (0.55-1.3)
[2023-03-29 10:54] LABS: BILIRUBIN,TOTAL 0.7 mg/dL (0.2-1)
[2023-03-29 10:55] LABS: TOT PROT 6.2 g/dl (6.4-8.2)
[2023-03-29 11:03] LABS: HEMATOCRIT 38.5 % (35.4-49); HEMOGLOBIN 12.8 GM/dL (11.7-16.9); MCH 30.8 pg (25.7-33.7); MCHC 33.2 g/dl (32.0-35.9); MEAN CELL VOLUME 92.6 fl (80-96); MEAN PLT VOLUME 9.6 fl (7.5-11.1); PLATELET COUNT 287 10^3/uL (134-434); RBC 4.16 M/mm3 (4.00-5.60); RDW 13.5 % (11.9-15.9); WHITE BLOOD COUNT 6.4 K/mm3 (4.0-10.0)
[2023-03-29] MEDS: cloNIDine HCL 0.1 MG TABLET PO PRN (22:33)
[2023-03-29] MEDS: THIAMINE HCL 100 MG TABLET (FP) PO SCH (22:33)
[2023-03-29] MEDS: MELATONIN 5 MG TABLETS PO SCH (22:34)
[2023-03-30] MEDS: diazePAM 5 MG TABLET PO SCH ×3 (05:56→22:22)
[2023-03-30] MEDS ORDERED: methaDONE HCL 10 MG TABLET (FOR DETOX USE ONLY) PO ONE (10:00)
[2023-03-30] MEDS: PRENATAL VITAMINS W/ FOLIC ACID TABLET (FP) PO SCH (10:17)
[2023-03-30] MEDS: NICOTINE 21 MG/24 HOURS TOPICAL PATCH TD SCH (10:19)
[2023-03-30] MEDS: diazePAM 5 MG TABLET PO PRN ×2 (10:22→17:53)
[2023-03-30] MEDS: cloNIDine HCL 0.1 MG TABLET PO PRN ×2 (11:36→22:21)
[2023-03-30] MEDS: IBUPROFEN 600 MG TABLET (FP) PO PRN (17:52)
[2023-03-30] MEDS: MELATONIN 5 MG TABLETS PO SCH (22:22)
[2023-03-30] MEDS: THIAMINE HCL 100 MG TABLET (FP) PO SCH (22:22)
[2023-03-31] MEDS: diazePAM 5 MG TABLET PO SCH ×2 (05:35→17:24)
[2023-03-31 09:42] VITALS: RESP 18
[2023-03-31] MEDS: NICOTINE 21 MG/24 HOURS TOPICAL PATCH TD SCH (10:27)
[2023-03-31] MEDS: PRENATAL VITAMINS W/ FOLIC ACID TABLET (FP) PO SCH (10:29)
[2023-03-31] MEDS: METHOCARBAMOL 500 MG TABLET PO PRN ×2 (10:29→22:09)
[2023-03-31] MEDS: MELATONIN 5 MG TABLETS PO SCH (22:09)
[2023-03-31] MEDS: THIAMINE HCL 100 MG TABLET (FP) PO SCH (22:09)
[2023-04-01] MEDS ORDERED: methaDONE HCL 10 MG TABLET (FOR DETOX USE ONLY) PO ONE (06:00)
[2023-04-01] MEDS ORDERED: diazePAM 5 MG TABLET PO ONE (06:00)
[2023-04-01] MEDS: NICOTINE 21 MG/24 HOURS TOPICAL PATCH TD SCH (10:14)
[2023-04-01] MEDS: PRENATAL VITAMINS W/ FOLIC ACID TABLET (FP) PO SCH (10:14)
[2023-04-01] MEDS: METHOCARBAMOL 500 MG TABLET PO PRN (10:14)
[2023-04-01] MEDS ORDERED: cloNIDine HCL 0.1 MG TABLET PO PRN (13:09)
[2023-04-01 13:30] VITALS: BP 153/92; PULSE 71; TEMP 97.3
[2023-04-01] MEDS: IBUPROFEN 600 MG TABLET (FP) PO PRN (13:52)
== END 2023-04-01 14:30 | disposition home or self-care (01) | DRG 773 ==
LOC: YASAS 20:05 → Y6N 03-28 09:09
PROVIDERS: ADMIT Allergy & Immunology; ATTEND Surgery
PROC: HZ2ZZZZ Detoxification Services for Substance Abuse Treatment (ICD-10-PCS; principal; 2023-03-28)
DX: F11.23 Opioid dependence with withdrawal (principal); F10.230 Alcohol dependence with withdrawal, uncomplicated; F14.20 Cocaine dependence, uncomplicated; F12.20 Cannabis dependence, uncomplicated; F17.210 Nicotine dependence, cigarettes, uncomplicated; M54.50 Low back pain, unspecified; G89.29 Other chronic pain; Z94.5 Skin transplant status
CPT/HCPCS: 36415; 80053; 83036; 85027; 86780; 87635; 93005; 93010

== ENCOUNTER 2023-05-31 19:37 | Inpatient (IN) | payer OTHER ==
[2023-05-31 20:02] VITALS: BMI 25.2
[2023-05-31] MEDS ORDERED: DICYCLOMINE HCL 10 MG CAPSULE PO PRN (21:04)
[2023-05-31] MEDS ORDERED: methaDONE HCL 10 MG TABLET (FOR DETOX USE ONLY) PO ONE (21:04)
[2023-05-31] MEDS ORDERED: MAGNESIUM HYDROX 2400MG/30ML ORAL SUSPENSION 30 ML CUP PO PRN (21:04)
[2023-05-31] MEDS ORDERED: LOPERAMIDE HCL 2 MG CAPSULE PO PRN (21:04)
[2023-05-31] MEDS ORDERED: chlordiazePOXIDE HCL 25 MG CAPSULE PO PRN (21:04)
[2023-05-31] MEDS ORDERED: cloNIDine HCL 0.1 MG TABLET PO PRN (21:04)
[2023-05-31] MEDS ORDERED: NICOTINE POLACRILEX 2 MG GUM BUC PRN (21:04)
[2023-05-31] MEDS ORDERED: ONDANSETRON *ODT* 4 MG TABLET SL PRN (21:04)
[2023-05-31] MEDS ORDERED: guaiFENesin 600 MG TABLET.ER (FP) PO PRN (21:04)
[2023-05-31] MEDS ORDERED: BISMUTH SUBSALICYLATE 524 MG/30 ML PO PRN (21:04)
[2023-05-31] MEDS ORDERED: BENZOCAINE/MENTHOL (CHLORASEPTIC ) LOZENGE MM PRN (21:04)
[2023-05-31] MEDS ORDERED: hydrOXYzine PAMOATE 25 MG CAPSULE (FP) PO PRN (21:04)
[2023-05-31] MEDS ORDERED: NALOXONE HCL (KLOXXADO) 8 MG SPRAY NS PRN (21:04)
[2023-05-31] MEDS ORDERED: NALOXONE HCL 0.4 MG/ML VIAL IM PRN (21:04)
[2023-05-31] MEDS ORDERED: IBUPROFEN 400 MG TABLET (FP) PO PRN (21:04)
[2023-05-31] MEDS ORDERED: ACETAMINOPHEN 325 MG TABLET (FP) PO PRN (21:04)
[2023-05-31] MEDS ORDERED: MAG HYDROX/AL HYDROX/SIMETH 30 ML UNIT-DOSE CUP PO PRN (21:04)
[2023-05-31] MEDS ORDERED: chlordiazePOXIDE HCL 25 MG CAPSULE PO ONE (21:04)
[2023-05-31] MEDS ORDERED: BENZONATATE 200 MG CAPSULE PO PRN (21:04)
[2023-05-31] MEDS ORDERED: POLYETHYLENE GLYCOL (HEALTHYLAX) 3350 17 GM PACKET PO PRN (21:04)
[2023-05-31] MEDS ORDERED: chlordiazePOXIDE HCL 25 MG CAPSULE ONE (21:30)
[2023-05-31] MEDS ORDERED: methaDONE HCL 10 MG TABLET (FOR DETOX USE ONLY) ONE ×2 (21:30→21:36)
[2023-05-31] MEDS: MELATONIN 5 MG TABLETS PO SCH (23:07)
[2023-05-31] MEDS: THIAMINE HCL 100 MG TABLET (FP) PO SCH (23:07)
[2023-05-31] MEDS: chlordiazePOXIDE HCL 25 MG CAPSULE PO SCH (23:07)
[2023-06-01] MEDS: chlordiazePOXIDE HCL 25 MG CAPSULE PO SCH ×4 (05:23→22:01)
[2023-06-01] MEDS: IBUPROFEN 600 MG TABLET (FP) PO PRN ×2 (05:30→22:04)
[2023-06-01 09:51] LABS: POTASSIUM 4.9 mmol/L (3.5-5.1)
[2023-06-01 09:53] LABS: HEMOGLOBIN 14.6 GM/dL (11.7-16.9); MCH 31.2 pg (25.7-33.7); MCHC 34.7 g/dl (32.0-35.9); MEAN CELL VOLUME 89.9 fl (80-96); MEAN PLT VOLUME 8.8 fl (7.5-11.1); PLATELET COUNT 371 10^3/uL (134-434); RBC 4.67 M/mm3 (4.00-5.60); RDW 13.7 % (11.9-15.9)
[2023-06-01 09:59] LABS: CALCIUM 9.2 mg/dL (8.5-10.1)
[2023-06-01 10:00] LABS: BLOOD UREA NITROGEN 11.9 mg/dL (7-18); CREATININE 0.9 mg/dL (0.55-1.3)
[2023-06-01 10:02] LABS: BILIRUBIN,TOTAL 0.6 mg/dL (0.2-1); TOT PROT 7.1 g/dl (6.4-8.2)
[2023-06-01] MEDS: PRENATAL VITAMINS W/ FOLIC ACID TABLET (FP) PO SCH (10:05)
[2023-06-01] MEDS: METHOCARBAMOL 500 MG TABLET PO PRN (10:05)
[2023-06-01] MEDS: NICOTINE 14 MG/24 HOURS TOPICAL PATCH TD SCH (10:09)
[2023-06-01] MEDS ORDERED: ONDANSETRON *ODT* 4 MG TABLET SL ONE (14:45)
[2023-06-01] MEDS: THIAMINE HCL 100 MG TABLET (FP) PO SCH (22:01)
[2023-06-01] MEDS: MELATONIN 5 MG TABLETS PO SCH (22:03)
[2023-06-02] MEDS: chlordiazePOXIDE HCL 25 MG CAPSULE PO SCH ×4 (05:23→22:04)
[2023-06-02] MEDS ORDERED: methaDONE HCL 10 MG TABLET (FOR DETOX USE ONLY) PO ONE (10:00)
[2023-06-02] MEDS: PRENATAL VITAMINS W/ FOLIC ACID TABLET (FP) PO SCH (10:15)
[2023-06-02] MEDS: NICOTINE 14 MG/24 HOURS TOPICAL PATCH TD SCH (10:15)
[2023-06-02] MEDS: IBUPROFEN 600 MG TABLET (FP) PO PRN ×2 (10:18→22:06)
[2023-06-02] MEDS ORDERED: CEPHALEXIN MONOHYDRATE 500 MG CAPSULE (UD) PO ONE (11:13)
[2023-06-02] MEDS: CEPHALEXIN MONOHYDRATE 500 MG CAPSULE (UD) PO SCH ×2 (13:09→22:04)
[2023-06-02] MEDS: THIAMINE HCL 100 MG TABLET (FP) PO SCH (22:04)
[2023-06-02] MEDS: MELATONIN 5 MG TABLETS PO SCH (22:05)
[2023-06-03] MEDS ORDERED: chlordiazePOXIDE HCL 10 MG CAPSULE PO PRN
[2023-06-03] MEDS: chlordiazePOXIDE HCL 10 MG CAPSULE PO SCH ×4 (05:46→22:05)
[2023-06-03] MEDS: CEPHALEXIN MONOHYDRATE 500 MG CAPSULE (UD) PO SCH ×3 (05:47→22:05)
[2023-06-03] MEDS: NICOTINE 14 MG/24 HOURS TOPICAL PATCH TD SCH (10:21)
[2023-06-03] MEDS: METHOCARBAMOL 500 MG TABLET PO PRN (10:21)
[2023-06-03] MEDS: PRENATAL VITAMINS W/ FOLIC ACID TABLET (FP) PO SCH (10:22)
[2023-06-03] MEDS: MELATONIN 5 MG TABLETS PO SCH (22:06)
[2023-06-03] MEDS: THIAMINE HCL 100 MG TABLET (FP) PO SCH (22:06)
[2023-06-04] MEDS ORDERED: chlordiazePOXIDE HCL 10 MG CAPSULE PO SCH (05:00)
[2023-06-04] MEDS: CEPHALEXIN MONOHYDRATE 500 MG CAPSULE (UD) PO SCH (05:31)
[2023-06-04] MEDS: IBUPROFEN 600 MG TABLET (FP) PO PRN (05:31)
[2023-06-04 09:41] VITALS: BP 146/82; PULSE 84; RESP 18; TEMP 97.5
[2023-06-04] MEDS: PRENATAL VITAMINS W/ FOLIC ACID TABLET (FP) PO SCH (09:52)
[2023-06-04] MEDS: METHOCARBAMOL 500 MG TABLET PO PRN (09:52)
[2023-06-04] MEDS: NICOTINE 14 MG/24 HOURS TOPICAL PATCH TD SCH (09:54)
[2023-06-04] MEDS ORDERED: methaDONE HCL 10 MG TABLET (FOR DETOX USE ONLY) PO ONE (10:00)
[2023-06-05] MEDS ORDERED: chlordiazePOXIDE HCL 10 MG CAPSULE PO ONE (05:00)
== END 2023-06-04 12:35 | disposition other institution (70) | DRG 773 ==
LOC: YASAS 19:37 → Y6N 21:27
PROVIDERS: ADMIT Allergy & Immunology; ATTEND Surgery
PROC: HZ2ZZZZ Detoxification Services for Substance Abuse Treatment (ICD-10-PCS; principal; 2023-05-31)
DX: F11.23 Opioid dependence with withdrawal (principal); F10.230 Alcohol dependence with withdrawal, uncomplicated; F14.20 Cocaine dependence, uncomplicated; F12.20 Cannabis dependence, uncomplicated; F17.210 Nicotine dependence, cigarettes, uncomplicated; L02.821 Furuncle of head [any part, except face]
CPT/HCPCS: 36415; 80053; 85027; 86780; 87635; Q0162